=== PATIENT | male | born 1940 | race Caucasian/White ===

== ENCOUNTER 2016-08-12 11:58 | Observation (INO) ==
[2016-08-12 12:30] LABS: Basophils % 0.3 %; Eosinophils # 0.1 K/mcL (0.0-0.6); Eosinophils % 1.2 %; Hematocrit 41.1 % (37.5-50.1); Hemoglobin 12.6 g/dL (12.9-16.9); Immature Granulocytes % 0.3 % (0-4); Immature Platelets 4.8 % (1.1-6.1); Lymphocytes # 1.2 K/mcL (0.6-4.6); Lymphocytes % 18.6 %; Mean Corpuscular HGB Conc 30.7 g/dL (31.6-35.5); Mean Corpuscular Hemoglobin 24.9 pg (28.0-33.3); Mean Corpuscular Volume 81.1 fL (83.0-100.0); Mean Platelet Volume 9.4 fL (9.4-12.4); Monocytes # 0.6 K/mcL (0.0-1.3); Monocytes % 8.9 %; Neutrophils # 4.6 K/mcL (1.6-8.9); Platelet Count 184 K/mcL (140-400); Red Blood Count 5.07 M/mcL (4.19-5.50); Red Cell Distribution Width 18.6 % (11.5-14.5); Segmented Neutrophils % 70.7 %
--- NOTE | 2016-08-12 12:30 | Emergency Department Note ---
Disposition Clinical Impression: NSTEMI (non-ST elevated myocardial infarction), Chest pain, A-fib, Hyperlipidemia, Acute systolic (congestive) heart failure, CAD (coronary artery disease) Disposition: Admitted As Inpatient Condition: Fair Chest Pain HPI - General Chief Complaint: ED Chest Pain Stated Complaint: Chest Pains Time Seen by Provider: 08/12/16 12:00 Source: patient, family Limitations: no limitations Vital Signs Reviewed: Yes Nursing Notes Reviewed: Yes - History of Present Illness HPI Narrative: Temporal male with history of coronary artery disease, status post multiple PCI presented chief complaint of chest pain. Patient says for 2 weeks he has had intermittent neck pain not chest pain that he cannot describe its quality 4 out of 10 associated with gagging and diaphoresis. He does not have this sensation right now. Currently patient's on Plavix and statin. He did not take any nitroglycerin at home. He states that this is similar to his previous "chest pain". Patient denies syncope, palpitations. Patient a left heart catheter last May showed one vessel severe coronary disease in the distal RCA. He had 1 drug-eluting stent placed at that time. Patient is on Plavix. Patient is also on Coumadin for atrial fibrillation. Last echo showed LVEF of 45-50%. He was diagnosed with acute systolic heart failure. Severity scale (1-10): 0 - Related Data Home Medications Medication Instructions Recorded Confirmed Alprazolam [Xanax 0.5 MG Tablet] 0.5 mg PO TID PRN 05/28/15 08/12/16 Calcium Carbonate/Vitamin D3 0.5 tab PO BID 05/28/15 08/12/16 [Calcium 600 + Vit D Tablet] Clopidogrel [Plavix] 75 mg PO QAM 05/28/15 08/12/16 Nitroglycerin [Nitrostat] 0.4 mg SL AD PRN 05/28/15 08/12/16 Atorvastatin Calcium [Lipitor] 80 mg PO HS 08/12/16 08/12/16 Losartan [Cozaar] 25 mg PO DAILY 08/12/16 08/12/16 Metoprolol Tartrate [Lopressor] 50 mg PO BID 08/12/16 08/12/16 Omeprazole [PriLOSEC] 40 mg PO DAILY 08/12/16 08/12/16 Potassium Bicarbonate/Cit AC 25 meq PO DAILY 08/12/16 08/12/16 [Potassium 25 Meq Tablet Eff] Warfarin [Coumadin] 2.5 mg PO 6XW 08/12/16 08/12/16 Previous Rx's Medication Instructions Recorded Furosemide [Lasix] 40 mg PO BIDDIURETIC #60 tablet 06/04/15 Isosorbide MONOnitrate (24 HR) 30 mg PO DAILY #30 tab.er.24h 06/04/15 [Imdur] Promethazine [Phenergan] 25 mg PO Q6HR PRN #16 tablet 08/10/15 Allergies Allergy/AdvReac Type Severity Reaction Status Date / Time No Known Allergies Allergy Verified 05/28/15 10:37 Review of Systems: Constitutional: Denies fever, chills HEENT: Denies headache, vision changes, sore throat, rhinorrhea, reports neck pain Heart: Denies chest pain palpitations Lungs: Denies shortness of breath cough Abdomen: Denies abdominal pain nausea vomiting diarrhea Extremities: Denies swelling, pain Neuro: Denies numbness, and tingling Chest Pain PMH - Past Medical History Medical history: Reports: aortic aneurysm, atrial fibrillation, cancer, cardiomyopathy, CHF, COPD, coronary artery disease, hyperlipidemia, hypertension , myocardial infarction Surgical history: Reports: angioplasty/stent Psychiatric history: Reports: no psych history - Social History Smoking Status: Unknown if ever smoked Alcohol use: Reports: unknown Drug use: Reports: none Physical Exam General: Alert and oriented to place time and situation. Without distress HEENT: Head atraumatic, normocephalic, EOMI, PERRLA, neck nontender to palpation , Lymphadenopathy, Moist Mucous Membranes, absent temporal tenderness to palpation, absent JVD Heart: Irregularly regular rhythm Lungs: Clear to auscultation bilaterally Abdomen: Soft nontender, nondistended positive bowel sounds Extremities: Absent pedal edema, Vascular: Pedal and radialpulses 2 out of 4 - General Limitations: no limitations General appearance: alert, in no apparent distress Course Course Narrative: Ordered CBC, BMP, EKG, troponin, chest x-ray - Reevaluation(s) Reevaluation #1: Troponin was 0.04. Patient's previous troponins are 0.01. EKG shows sinus rhythm with PVC and no change from previous. Hemoglobin is stable. She will creatinine is 1.38 which is patient's baseline. Chest x-ray shows cardiomegaly with no acute process. Patient is anticoagulated with warfarin with a INR of 2.1.Patient will be needed to admit her for further evaluation. Reevaluation #2: Patient refuses to be admitted to the hospital. He was told this could certainly Diphenhist significant morbidity. He does not want to be transferred to another facility. Time: 13:38 Reevaluation #3: Patient has changed his mind and would like to be admitted. We will contact hospitalist. Time: 13:58 Vital Signs Temperature 98.5 F 08/12/16 12:01 Pulse Rate 89 08/12/16 12:01 Respiratory Rate 18 08/12/16 12:01 Blood Pressure 159/125 08/12/16 12:01 O2 Sat by Pulse Oximetry 95 08/12/16 12:01 Temperature 98.5 F 08/12/16 12:01 Pulse Rate 81 08/12/16 14:02 Respiratory Rate 18 08/12/16 14:02 Blood Pressure 118/87 08/12/16 14:02 O2 Sat by Pulse Oximetry 95 08/12/16 14:02 Oxygen Delivery Oxygen Delivery Room Air Chest Pain - MDM Narrative Medical decision making narrative: Patient's EKG shows no ST-T wave changes. Troponin is 0.04. He is anticoagulated with warfarin and has INR 2.1. We will contact hospice for admission. - Medical Records Medical records reviewed: Yes I reviewed the patient's medical records. - Lab Data Lab results reviewed: Yes I reviewed the patient's lab results. Result diagrams: 08/12/16 12:22 08/12/16 12:22 Lab Results 08/12/16 08/12/16 08/12/16 Range/Units 12:22 12:22 12:22 WBC 6.5 (4.3-11.1) K/mcL RBC 5.07 (4.19-5.50) M/mcL Hgb 12.6 L (12.9-16.9) g/dL Hct 41.1 (37.5-50.1) % MCV 81.1 L (83.0-100.0) fL MCH 24.9 L (28.0-33.3) pg MCHC 30.7 L (31.6-35.5) g/dL RDW 18.6 H (11.5-14.5) % Plt Count 184 (140-400) K/mcL MPV 9.4 (9.4-12.4) fL Immature Gran % 0.3 (0-4) % Seg Neutrophils % 70.7 % Lymphocytes % 18.6 % Monocytes % 8.9 % Eosinophils % 1.2 % Basophils % 0.3 % Neutrophils # 4.6 (1.6-8.9) K/mcL Lymphocytes # 1.2 (0.6-4.6) K/mcL Monocytes # 0.6 (0.0-1.3) K/mcL Eosinophils # 0.1 (0.0-0.6) K/mcL Basophils # 0.0 (0.0-0.2) K/mcL Immature Plt Fraction 4.8 (1.1-6.1) % PT 23.5 H (9.4-12.1) Seconds INR 2.1 APTT 37.1 H (26.0-36.0) Seconds Sodium 144 (136-145) mEq/L Potassium 4.0 (3.5-4.5) mEq/L Chloride 101 (98-109) mEq/L Carbon Dioxide 35 H (19-29) mEq/L BUN 23 (8-26) mg/dL Creatinine 1.38 H (0.72-1.25) mg/dL Est GFR ( Amer) > 60 (> 60) Est GFR (Non-Af Amer) 50 L (> 60) BUN/Creatinine Ratio 17 (6-26) Glucose 113 H (70-99) mg/dL Calculated Osmolality 302 H (280-300) Calcium 9.3 (8.6-10.8) mg/dL Troponin I (0-0.03) ng/mL 08/12/16 Range/Units 12:22 WBC (4.3-11.1) K/mcL RBC (4.19-5.50) M/mcL Hgb (12.9-16.9) g/dL Hct (37.5-50.1) % MCV (83.0-100.0) fL MCH (28.0-33.3) pg MCHC (31.6-35.5) g/dL RDW (11.5-14.5) % Plt Count (140-400) K/mcL MPV (9.4-12.4) fL Immature Gran % (0-4) % Seg Neutrophils % % Lymphocytes % % Monocytes % % Eosinophils % % Basophils % % Neutrophils # (1.6-8.9) K/mcL Lymphocytes # (0.6-4.6) K/mcL Monocytes # (0.0-1.3) K/mcL Eosinophils # (0.0-0.6) K/mcL Basophils # (0.0-0.2) K/mcL Immature Plt Fraction (1.1-6.1) % PT (9.4-12.1) Seconds INR APTT (26.0-36.0) Seconds Sodium (136-145) mEq/L Potassium (3.5-4.5) mEq/L Chloride (98-109) mEq/L Carbon Dioxide (19-29) mEq/L BUN (8-26) mg/dL Creatinine (0.72-1.25) mg/dL Est GFR ( Amer) (> 60) Est GFR (Non-Af Amer) (> 60) BUN/Creatinine Ratio (6-26) Glucose (70-99) mg/dL Calculated Osmolality (280-300) Calcium (8.6-10.8) mg/dL Troponin I 0.04 H* (0-0.03) ng/mL - Radiology Data Radiology results reviewed: Yes I reviewed the patient's radiology results. - EKG Data EKG attestation: Yes I reviewed and interpreted this EKG. EKG results narrative: Sinus rhythm rate 90, with PVC, Q waves in 23 aVF that are not changed from previous. Normal sinus rhythm with no changes from previous. Heart Score - Score History: Moderately Suspicious EKG: Normal Age: Greater than 65 Risk Factors: Equal/Greater than 3 risk factor or history of atherosclerotic disease Troponin: 1-3x normal limit HEART Score Total: 6
[2016-08-12 12:38] LABS: INR 2.1; Prothrombin Time 23.5 Seconds (9.4-12.1)
[2016-08-12 12:41] LABS: Activated Partial Thrombo Time 37.1 Seconds (26.0-36.0); BUN/Creatinine Ratio 17 (6-26); Blood Urea Nitrogen 23 mg/dL (8-26); Calcium 9.3 mg/dL (8.6-10.8); Carbon Dioxide 35 mEq/L (19-29); Chloride 101 mEq/L (98-109); Glucose 113 mg/dL (70-99); Osmolality,Calculated 302 (280-300); Sodium 144 mEq/L (136-145); eGFR For African Americans > 60 (> 60); eGFR For Non-African Americans 50 (> 60)
[2016-08-12] MEDS ORDERED: Aspirin 81 MG TAB.CHEW PO STA (12:41)
--- NOTE | 2016-08-12 13:36 | Emergency Department Note ---
START Narrative - START START: Patient is going to sign out AGAINST MEDICAL ADVICE. I spoke with him that he could potentially go home and have a heart attack and and he still has refused and is understands the consequences of him leaving. I explained that he can return to the ER at any point in the future if he so desired. Recommended close follow-up with his heart doctor.
[2016-08-12] MEDS ORDERED: Naloxone 0.4 MG/ML INJ IVP PRN (15:06)
--- NOTE | 2016-08-12 15:20 | Internal Med History&Physical ---
Date of Encounter: 08/12/16 Time of Encounter: 14:45 Assessment and Plan (1) Chest pain Current visit: Yes Status: Acute Patient with chest pain. History of prior [place] and coronary artery disease with multiple stents in the past. Will observe patient in hospital overnight. Trend troponins. Telemetry. Consult cardiology for further recommendations. Qualifiers: Chest pain type: precordial pain Qualified Code(s): R07.2 - Precordial pain (2) Acute systolic (congestive) heart failure Current visit: Yes Status: Acute Patient having dyspnea on exertion and worse pedal edema. We will treat with IV Lasix. Chest x-ray does not show any signs of pulmonary edema. This could also be contributing to rise in troponin. Patient had a 2-D echocardiogram 1 year back which showed EF of 45 to 50%. We will repeat 2-D echo. (3) A-fib Current visit: Yes Status: Chronic Rate controlled. On Coumadin. Monitor with telemetry. Continue beta glen. Qualifiers: Atrial fibrillation type: paroxysmal Qualified Code(s): I48.0 - Paroxysmal atrial fibrillation (4) Hyperlipidemia Current visit: Yes Status: Chronic Continue statin. Check lipid profile. Qualifiers: Hyperlipidemia type: mixed hyperlipidemia Qualified Code(s): E78.2 - Mixed hyperlipidemia (5) Hypertension Current visit: Yes Status: Chronic Blood pressure is well controlled. Will monitor and continue home medications. Qualifiers: Hypertension type: essential hypertension Qualified Code(s): I10 - Essential (primary) hypertension Internal Medicine - H&P: HPI Chief complaint: Chest discomfort Admitted From: Emergency Dept Plans for Post Hospital Care: Home History of present illness: Mr. More is a 76 year old male patient with a history of coronary artery disease,, hypertension and hyperlipidemia atrial fibrillation on anticoagulation with Coumadin who presented to the ER with complaints of chest discomfort that has been going on for 2 weeks. She did not have the chest pain today but he describes a pain going up into his neck. Over the past 2 weeks though he has been having some chest discomfort across his chest. This was radiating up his neck and jaw. He has had similar kind of pain during his previous episodes of [place]. As such was concerned about this and came to the ER. He has been having worsening pedal edema and worsening dyspnea on exertion. He does take diuretic every day. Patient has had multiple stents in the past. his last one was in May of last year and he had a drug-eluting stent placed to the proximal RCA. He had been recommended CABG but he had refused at that time. He was also referred to a tertiary care center for Rotablator therapy. However the patient says that when he visited the facility, after multiple tests, he was told that he did not need any further treatment at that time. He is on Plavix and Coumadin in addition to metoprolol and Imdur. Past Med Surg Social Fam HX - Past Medical History Attestation: Yes The following information was validated with the patient. Source: patient, old records reviewed Medical history: aortic aneurysm, atrial fibrillation, cancer, cardiomyopathy, CHF, COPD, coronary artery disease, hyperlipidemia, hypertension, myocardial infarction Psychiatric history: no psych history - Past Surgical History Surgical History: angioplasty/stent - Social History Smoking Status: Unknown if ever smoked Smokeless Tobacco Status: No Alcohol use: unknown Drug use: none - Family History Father Family Member Ethnicity: Non- Living Status: Hx Family Cardiac Disorders: Yes (Unknown) Internal Medicine - H&P: Meds Alprazolam [Xanax 0.5 MG Tablet] 0.5 mg PO TID PRN 05/28/15 [History] Calcium Carbonate/Vitamin D3 [Calcium 600 + Vit D Tablet] 0.5 tab PO BID [History] Clopidogrel [Plavix] 75 mg PO QAM 05/28/15 [History] Nitroglycerin [Nitrostat] 0.4 mg SL AD PRN 05/28/15 [History] Furosemide [Lasix] 40 mg PO BIDDIURETIC #60 tablet 06/04/15 [Rx] Isosorbide MONOnitrate (24 HR) [Imdur] 30 mg PO DAILY #30 tab.er.24h 06/04/15 [ Rx] Promethazine [Phenergan] 25 mg PO Q6HR PRN #16 tablet 08/10/15 [Rx] Atorvastatin Calcium [Lipitor] 80 mg PO HS 08/12/16 [History] Losartan [Cozaar] 25 mg PO DAILY 08/12/16 [History] Metoprolol Tartrate [Lopressor] 50 mg PO BID 08/12/16 [History] Omeprazole [PriLOSEC] 40 mg PO DAILY 08/12/16 [History] Potassium Bicarbonate/Cit AC [Potassium 25 Meq Tablet Eff] 25 meq PO DAILY 08/12 [History] Warfarin [Coumadin] 2.5 mg PO 6XW 08/12/16 [History] Allergies No Known Allergies Allergy (Verified 05/28/15 10:37) All Systems PM: A 10-system review of systems was performed and is negative for pertinent findings except as documented above in the HPI. - Constitutional Constitutional: no chills, no fever(s), no night sweats - EENT Eyes: no change in vision, no discharge, no pain, no photophobia Ears: no ear discharge, no ear pain, no tinnitus Nose, mouth and throat: no dysphagia, no nasal discharge, no neck pain, no sore throat - Cardiovascular Cardiovascular ROS IM: chest pain, dyspnea on exertion, no diaphoresis, no dyspnea, no lightheadedness, no palpitations, no syncope - Respiratory Respiratory: no cough, no dyspnea, no wheezing, no excessive phlegm production - Gastrointestinal Gastrointestinal: no abdominal pain, no diarrhea, no hematemesis, no hematochezia, no melena, no nausea, no vomiting - Musculoskeletal Musculoskeletal ROS IM: no numbness, no tingling - Integumentary Integumentary IM: no rash, no unusual bruising - Neurological Neurological ROS: no confusion, no convulsions, no focal weakness, no numbness, no tingling, no tremor(s) - Hematologic/Lymphatic Hematologic/Lymphatic: no easy bruising - Constitutional Vitals: Temp Pulse Resp BP Pulse Ox 97.8 F 83 15 115/70 94 08/12/16 15:04 08/12/16 15:04 08/12/16 15:04 08/12/16 15:05 08/12/16 15:04 General appearance: Present: cooperative, mild distress, A&O X 3, answers questions appropriately - Eye Eye exam: Present: EOMI, PERRL, conjuntiva pink, sclera anicteric - Neck Neck exam general surgery: Present: supple, trachea midline. Absent: lymphadenopathy - Respiratory Respiratory exam: Present: CTAB. Absent: accessory muscle use, rales, rhonchi, wheezes - Cardiovascular Cardiovascular exam: Present: irregular rhythm, +S1, +S2, tachycardia. Absent: diastolic murmur, gallop, rubs, systolic murmur - GI/Abdominal GI/Abdominal exam: Present: normal bowel sounds, soft, no peritoneal signs. Absent: distended, tenderness - Extremities Exam Extremities exam: Present: warm, radial pulses palpable and symetrical. Absent : calf tenderness, cyanotic, pedal edema - Neurological Exam Neurological exam: Present: CN II-XII intact, oriented X3, no focal deficits. Absent: facial droop, speech deficit - Skin Skin exam: Present: dry, intact Internal Med - H&P Results - Labs CBC & Chem 7: 08/12/16 12:22 08/12/16 12:22 - EKG Data EKG comments: 08/12/16 15:22 Rate controlled A. fib - Impressions Impressions Chest X-Ray 08/12/16 12:02 IMPRESSION: Cardiomegaly with no acute process demonstrated D/ / Allan Luque MD / Allan Luque MD Interpreting Provider: Allan Luque MD - Attending Attestation This document has been at least partially created by [employer] recognition technology by Dr. Stanford. Errors in grammar, wording or other phrases may exist. If errors are found after the documentation is signed, they will be addressed individually in the addendum section of this document when appropriate.
[2016-08-12] MEDS ORDERED: Nitroglycerin 0.4 MG TAB.SUBL SL PRN (15:27)
[2016-08-12] MEDS ORDERED: ALPRAZolam 0.5 MG TABLET PO PRN (15:27)
[2016-08-12] MEDS: Furosemide 40 MG/4 ML VIAL IVP SCH (17:02)
[2016-08-12] MEDS ORDERED: *HR* Warfarin 2.5 MG TABLET PO SCH (18:00)
[2016-08-13 05:15] LABS: Basophils % 0.2 %; Eosinophils # 0.1 K/mcL (0.0-0.6); Eosinophils % 2.3 %; Hematocrit 36.7 % (37.5-50.1); Hemoglobin 11.4 g/dL (12.9-16.9); Immature Granulocytes % 0.4 % (0-4); Lymphocytes # 1.7 K/mcL (0.6-4.6); Mean Corpuscular HGB Conc 31.1 g/dL (31.6-35.5); Mean Corpuscular Volume 80.5 fL (83.0-100.0); Mean Platelet Volume 10.6 fL (9.4-12.4); Monocytes # 0.5 K/mcL (0.0-1.3); Monocytes % 10.7 %; Neutrophils # 2.5 K/mcL (1.6-8.9); Platelet Count 151 K/mcL (140-400); Red Blood Count 4.56 M/mcL (4.19-5.50); Red Cell Distribution Width 18.6 % (11.5-14.5); Segmented Neutrophils % 51.4 %
[2016-08-13 05:19] LABS: INR 2.3; Prothrombin Time 25.9 Seconds (9.4-12.1)
[2016-08-13 05:32] LABS: Calcium 9.1 mg/dL (8.6-10.8); Chol/HDL Ratio 2.6 (0-4.9)
[2016-08-13] MEDS: Furosemide 40 MG/4 ML VIAL IVP SCH (08:54)
[2016-08-13] MEDS ORDERED: Potassium Effervescent 25 MEQ TABLET.EFF PO SCH (09:00)
[2016-08-13] MEDS ORDERED: Isosorbide MONOnitrate (24 HR) 30 MG TAB.ER.24H PO SCH (09:00)
--- NOTE | 2016-08-13 09:31 | Cardiology Consult Note ---
Date of Encounter: 08/13/16 Time of Encounter: 08:30 Assessment and Plan (1) CAD (coronary artery disease) Current Visit: Yes Status: Acute Presents with chest/neck discomfort--similar to angina symptoms. Tropoin 0.04, 0.03, 0.03. No acute ischemic ECG changes noted--findings similar to prior ECG. Non-exercise nuclear stress test at [facility] in on 12/16/15--negative for reversible ishchemia. [facility] 05/2015--PTCA/GISELLE to pRCA with moderate residual stenosis, he was recommended for bypass surgery but has refused. Pain free upon exam, recommend medical management. Increase betablocker and nitrates. Consider addition of ranexa in future. Continue asa, statin, and plavix. Echocardiogram pending. Qualifiers: Coronary Disease-Associated Artery/Lesion type: [place] artery [place] vs. transplanted heart: wainwright heart Associated angina: with stable angina Qualified Code(s): I25.118 - Atherosclerotic heart disease of [place]ain[place] coronary artery with other forms of angina pectoris (2) NSVT (nonsustained ventricular tachycardia) Current Visit: Yes Status: Acute Frequent episodes of NSVT noted, longest 13 beats. Will increase betablocker to 100 mg BID. Check magnesium. (3) Systolic dysfunction Current Visit: Yes Status: Chronic Hx of mild systolic dysfunction, EF 45-50% per TTE 05/2015. Mild volume overload upon exam. No acute findings on CXR. Will stop IV lasix and change to po home dose. SCr elevation noted today. Continue betablocker and ARB. (4) A-fib Current Visit: Yes Status: Chronic Hx of afib on coumadin therapy (ACMS monitors as outpatient). Rate controlled on oral betablocker. INR therapeutic. Qualifiers: Atrial fibrillation type: persistent Qualified Code(s): I48.1 - Persistent atrial fibrillation Discussion w patient/family: The assessment and plan as outlined above was discussed with the patient and/or family members who expressed understanding and agreement. All questions were answered. Thank you for involving us in the care of your patient. Please call with any questions. The patient will be discussed and reviewed with Dr. Escobar; changes to be made accordingly. History of Present Illness Consult date: 08/13/16 Requesting physician: Meaghan Stanford Consult reason: Chest pain Chief complaint: Chest pain History of present illness: Mr. More is a 76 year old male with PMH significant for CAD s/p PCI, HTN, HLD , Afib (coumadin), and NATALEE who presented to the ED with worsening neck tightness and chest discomfort. Reports symptoms have been intermittent over the past month--typically occurring at rest but worsened yesterday morning shortly after waking up. Associated symptoms include dizziness and BLE edema. Upon arrival to ED, BP was elevated, and initial troponin was 0.04. No acute ECG changes noted. Recent CV testing includes: Non-exercise nuclear stress test 12/16/15 ([facility]): negative for reversible ischemia, large perfusion defect in the inferolateral-inferior wall from base to apex; gated EF=42% TTE 05/28/15: EF 45-50%, hypokinesis of the basal-mid inferior lateral wall [facility] 06/01/16: severe 1v CAD, mild-moderate LV dysfunction, EF 40%, successful PTCA/GISELLE in the pRCA with residual 40-50% stenosis. Otherwise, 30% LMCA, 30% mLAD, 20% 1OM, and 60-70% dRCA Past Med Surg Social Fam HX - Past Medical History Attestation: Yes The following information was validated with the patient. Source: patient, old records reviewed Medical history: aortic aneurysm, atrial fibrillation, cancer, CHF (mild systolic dysfunction), COPD, coronary artery disease, hyperlipidemia, hypertension, myocardial infarction Psychiatric history: anxiety - Past Surgical History Surgical History: angioplasty/stent - Social History Smoking Status: Former smoker Smokeless Tobacco Status: No Alcohol use: none Drug use: none - Family History Father Name: Fortunato More Family Member Ethnicity: Non- Living Status: Age at : 65 Cause of : heart attack Hx Family Cardiac Disorders: Yes Medications and Allergies Alprazolam [Xanax 0.5 MG Tablet] 0.5 mg PO TID PRN 05/28/15 [History] Calcium Carbonate/Vitamin D3 [Calcium 600 + Vit D Tablet] 0.5 tab PO BID [History] Clopidogrel [Plavix] 75 mg PO QAM 05/28/15 [History] Nitroglycerin [Nitrostat] 0.4 mg SL AD PRN 05/28/15 [History] Furosemide [Lasix] 40 mg PO BIDDIURETIC #60 tablet 06/04/15 [Rx] Isosorbide MONOnitrate (24 HR) [Imdur] 30 mg PO DAILY #30 tab.er.24h 06/04/15 [ Rx] Promethazine [Phenergan] 25 mg PO Q6HR PRN #16 tablet 08/10/15 [Rx] Atorvastatin Calcium [Lipitor] 80 mg PO HS 08/12/16 [History] Losartan [Cozaar] 25 mg PO DAILY 08/12/16 [History] Metoprolol Tartrate [Lopressor] 50 mg PO BID 08/12/16 [History] Omeprazole [PriLOSEC] 40 mg PO DAILY 08/12/16 [History] Potassium Bicarbonate/Cit AC [Potassium 25 Meq Tablet Eff] 25 meq PO DAILY 08/12 [History] Warfarin [Coumadin] 2.5 mg PO 6XW 08/12/16 [History] Allergies No Known Allergies Allergy (Verified 05/28/15 10:37) All Systems Review: A 10-system review of systems was performed and is negative for pertinent findings except as documented above in the HPI. - Cardiovascular Cardiovascular: as per HPI Physical Examination Vital Signs, Last 4 Hours Temp Pulse Resp BP Pulse Ox 08/13/16 08:20 98.1 F 100 16 154/96 94 General: Conversant, No Apparent Distress HEENT: Atraumatic, Normocephaly, Mucus Membranes Moist Cardiac: Reg Rate and Rhythm, Normal S1 and S2 Lungs: Other (Mildy diminished bibasilar) Neuro: Alert and responsive Abdomen: Soft Skin: No rashes noted on visualized skin Musculoskeletal: No Chest Wall Tenderness Extremities: Other (mild, non-pitting, pre-tibial edema) Results 08/13/16 04:09 08/13/16 04:09 Lab Results 08/12/16 08/12/16 08/13/16 15:20 20:49 04:09 WBC Hgb Hct Plt Count INR Sodium Potassium Chloride Carbon Dioxide BUN Creatinine Glucose Calcium Troponin I 0.03 0.03 B-Natriuretic Peptide 735 H 08/13/16 08/13/16 08/13/16 04:09 04:09 04:09 WBC 4.8 Hgb 11.4 L Hct 36.7 L Plt Count 151 INR 2.3 Sodium 144 Potassium 4.0 Chloride 102 Carbon Dioxide 33 H BUN 24 Creatinine 1.45 H Glucose 99 Calcium 9.1 Troponin I B-Natriuretic Peptide - Imaging and Cardiology Stress Test: report reviewed Echo: report reviewed Cardiac cath: report reviewed Other Results: 12 hour tele: avg HR=86 afib. Freqent PVCs, 1 episode NSVT 13 beats - EKG Interpretation EKG results cardiology: personally reviewed Consult Discharge Plan - Plan Referrals: Mendel Hendricks MD [Primary Care Provider] -
[2016-08-13 11:07] VITALS: BP 121/71
--- NOTE | 2016-08-13 11:30 | ECHO - Doppler Report ---
Echocardiogram Name: Rajinder More Date of Study: 08/13/2016 Date: 1940 Ht: 68.0 in Medical Record#: [id number] Age: 76 Wt: 213.0 lb Gender: Male BSA: 2.1 Order #: [id number] Location: [facility] Room #: 3B52 Reading Physician: Brady Foreman DO, KEILY EMERSON Personnel Specialist: Eddie Tellez RDCS Ordering Physician: Meaghan Stanford MD Primary Physician: Mendel Hendricks MD Indications: Chest pain, Congestive heart failure Impressions: LVEF 45%. Mildly dilated left ventricle. Mild segmental left ventricular systolic dysfunction. Indeterminate diastolic function. Normal right ventricular structure and function. Mild mitral regurgitation. Mild pulmonary hypertension. Left Ventricular Wall Motion: Rest Echo Findings The mid inferior, basal inferior, mid inferior lateral and basal inferior lateral james were hypokinetic. All other wall segments showed normal motion. Findings: Study Quality * Technically adequate exam. ECG Findings * Atrial fibrillation. Left Ventricle * LVEF 45%. * Mildly dilated left ventricle. * Mild segmental left ventricular systolic dysfunction. * Indeterminate diastolic function. Right Ventricle * Normal right ventricular structure and function. Left Atrium * Moderately dilated left atrium. Right Atrium * Mildly dilated right atrium. Interatrial Septum * No evidence of PFO by color Doppler. Aortic Valve * Trileaflet aortic valve. * Mildly sclerotic aortic valve leaflets. * Trace aortic regurgitation. * No aortic stenosis. Mitral Valve * Mild mitral annular calcification * Mild mitral regurgitation. * No mitral stenosis. Tricuspid Valve * Normal tricuspid valve structure and function. * Trace tricuspid regurgitation. * Mild pulmonary hypertension. Pulmonic Valve * Pulmonic valve is not well visualized. * No pulmonic regurgitation. Aorta * Normally sized aortic root. Pericardium * The pericardium appears normal. IVC * Normal IVC dimensions and inspiratory collapse. Pulmonary Artery * Normal visualized portions of the main pulmonary artery. History Hypertension Hypercholesteremia Family History of CAD History of CAD/PTCA Myocardial Infarction Valvular Disease a Previous Echo was performed. Measurements: BP: 153/ 72 2D Normal Values RVIDd: 3.28 cm <2.7 cm IVSd: .96 cm 0.6 - 1.0 cm LVIDd: 5.70 cm 3.7 - 5.6 cm LVPWd: 1.00 cm 0.6 - 1.1 cm LVIDs: 4.81 cm 1.5 - 3.6 cm AO: 3.60 cm < 4.0 cm LA: 3.40 cm 2.0 - 4.0cm %FS: 15.60 cm >25 % LA volume: 73 Mitral Valve Peak E:.99 m/sec Aortic Valve AI pressure Half-time: 310.00 msec Tricuspid Valve TV Regurg Peak Grad: 40.00mmHg TV Regurg Peak Michael: 3.18m/sec Updated by Brady Foreman DO, FACRenee, KEILY, APRIL on 08/13/2016 11:21:36 AM electronically signed on 08/13/2016 11:26:06 AM with status of Final Wall Motion [place]: 1=Normal, 2=Hypokinesis, 3=Akinesis, 4=Dyskinesis, 5=Aneurysmal, 6=Hyperkinetic, X=Not Visualized (Blank)=Missing
[2016-08-13] MEDS ORDERED: Isosorbide MONOnitrate (24 HR) 30 MG TAB.ER.24H PO ONE (12:00)
--- NOTE | 2016-08-13 13:20 | Discharge Summary ---
Date of Encounter: 08/13/16 Time of Encounter: 10:00 - Discharge Diagnosis (1) Chest pain Priority: Primary Status: Acute Comments: Patient denies chest pain at this time. He was assessed by cardiology prior to discharge today. It was recommended that he increase his beta glen and his nitrate. Also consider addition of Ranexa in the future. Continue aspirin and statin and Plavix. Patient will also be ordered a 48 hour Holter monitor. Echocardiogram showed LVEF 45%. Mild segmental left ventricular systolic dysfunction, indeterminate diastolic function, mild MR, mild pulmonary hypertension Initial troponin was 0.04 down to 0.02. EKG showed no acute ischemic changes. Qualifiers: Chest pain type: precordial pain Qualified Code(s): R07.2 - Precordial pain (2) A-fib Priority: Secondary Status: Chronic Comments: Rate controlled. He is also on Coumadin. He will continue his beta glen at home. Qualifiers: Atrial fibrillation type: persistent Qualified Code(s): I48.1 - Persistent atrial fibrillation (3) Hyperlipidemia Priority: Secondary Status: Chronic Comments: Chronic. Continue statin at home. Lipid panel within normal limits. Qualifiers: Hyperlipidemia type: mixed hyperlipidemia Qualified Code(s): E78.2 - Mixed hyperlipidemia (4) Hypertension Priority: Secondary Status: Chronic Comments: Blood pressure has been well controlled during admission. Continue home medications. Qualifiers: Hypertension type: essential hypertension Qualified Code(s): I10 - Essential (primary) hypertension (5) Acute systolic (congestive) heart failure Priority: Secondary Status: Acute Comments: Patient reports dyspnea on exertion, chest pain for 2 weeks. Patient received 40 mg of Lasix IV daily. Echocardiogram showed LVEF of 45%, mild segmental left ventricular systolic dysfunction, indeterminant diastolic dysfunction. Mild pulmonary hypertension, mild MR, normal right ventricular structure and function. Chest x-ray negative for signs of pulmonary edema or acute cardiopulmonary process. Patient will continue home dose of Lasix at home as well and follow up with cardiopulmonary. - Discharge Medications Prescriptions: Isosorbide MONOnitrate (24 HR) [Imdur] 60 mg PO DAILY #30 tab.er.24h Metoprolol [Lopressor] 100 mg PO BID #60 tablet Home Medications: Alprazolam [Xanax 0.5 MG Tablet] 0.5 mg PO TID PRN 05/28/15 [History] Calcium Carbonate/Vitamin D3 [Calcium 600 + Vit D Tablet] 0.5 tab PO BID [History] Clopidogrel [Plavix] 75 mg PO QAM 05/28/15 [History] Nitroglycerin [Nitrostat] 0.4 mg SL AD PRN 05/28/15 [History] Furosemide [Lasix] 40 mg PO BIDDIURETIC #60 tablet 06/04/15 [Rx] Isosorbide MONOnitrate (24 HR) [Imdur] 30 mg PO DAILY #30 tab.er.24h 06/04/15 [ Rx] Promethazine [Phenergan] 25 mg PO Q6HR PRN #16 tablet 08/10/15 [Rx] Atorvastatin Calcium [Lipitor] 80 mg PO HS 08/12/16 [History] Losartan [Cozaar] 25 mg PO DAILY 08/12/16 [History] Metoprolol Tartrate [Lopressor] 50 mg PO BID 08/12/16 [History] Omeprazole [PriLOSEC] 40 mg PO DAILY 08/12/16 [History] Potassium Bicarbonate/Cit AC [Potassium 25 Meq Tablet Eff] 25 meq PO DAILY 08/12 [History] Warfarin [Coumadin] 2.5 mg PO 6XW 08/12/16 [History] Isosorbide MONOnitrate (24 HR) [Imdur] 60 mg PO DAILY #30 tab.er.24h 08/13/16 [ Rx] Metoprolol [Lopressor] 100 mg PO BID #60 tablet 08/13/16 [Rx] Allergies/Adverse Reactions: Allergies No Known Allergies Allergy (Verified 05/28/15 10:37) Procedures/tests Complete & Pending: Procedures Performed prior 72 hours Category Date Time Status ECG 48 holter monitor setup [ECG] Routine Y 08/13/16 11:30 Ordered EV echocardiogram Routine Y 08/13/16 15:27 Completed Date of admission: 08/12/16 14:15 Primary care physician: Mendel Hendricks MD Consults: 08/12/16 15:26 Consult to Cardiology [CONS] Routine Comment: Consulting Provider: Cardiology [facility] Reason for Consult: Chest pain, mild troponin elevation, CHF, prior stents Time Notified: 15:27 Call Completed: Yes Discharging clinician: Alyssa Combs Anticipated date of discharge: 08/13/16 - Patient Status Disposition: Home, Self-Care Condition: Good Functional capacity at discharge: independent ambulation Overall status at discharge: patient is back to baseline - Discharge Instructions Follow Up With: Mendel Hendricks MD [Primary Care Provider] - Forms: ED Satisfaction Letter Additional Instructions: Please follow up with cardiology as scheduled next . Take your medications as written. Continue your other normal home medications Return to the ED for any other problems or concerns, or if your pain returns or if you have any concerning change in your condition. Hospital course: Mr. More is a 76 year old male with a history of congestive heart failure, A. fib, chest pain, AL, coronary artery disease,, hyperlipidemia, hypertension. He presented to the emergency department on August 12 with complaint of two-week history of chest pain. He said that it started radiating into his neck yesterday causing him concern to bring him to the ER. He said that his chest pain was diffuse all over left to right, burning, and the only radiation was into the neck yesterday. He describes the pain as intermittent, and very short lasting perhaps 1-2 seconds. At its worst it was 10 out of 10. He said that he did become diaphoretic, however, this could be from the hormone he is taking for his prostate. He said he has become short of breath and noticed some increasing peripheral edema. Patient continued taking his Lasix at home. Patient does have a GISELLE in his proximal RCA. He has declined to have CABG. Trended troponins and they were negative. Echocardiogram was done today, LVEF of 45%, mildly dilated left ventricle, mild segmental left ventricular systolic dysfunction, indeterminate diastolic dysfunction, normal right ventricular structure and function, mild mitral regurgitation, and mild pulmonary hypertension. Chest x-ray was negative. He is pain-free this morning. He was seen by cardiology this morning, as well. He will have an outpatient Holter monitor to be placed here before he leaves today. He will continue his Plavix and Coumadin, the Imdur and metoprolol will be increased. He will be sent home with prescriptions for these. Patient is alert and awake, creatinine is elevated at 1.45, however this is his baseline. Lipid panel is within normal limits. BNP was initially 735. He will continue his Lasix at home.patient states he has an appointment with cardiology next . She is stable and appropriate for discharge. - Time Spent with Patient Total time spent providing and/or coordinating discharge services: Less than 30 minutes - Constitutional Vitals: Temp Pulse Resp BP Pulse Ox 97.6 F 85 16 121/71 98 08/13/16 11:03 08/13/16 11:03 08/13/16 11:03 08/13/16 11:03 08/13/16 11:03 General appearance: Present: cooperative, mild distress, A&O X 3, pleasant, no acute distress, answers questions appropriately - Head Head exam: Present: normal inspection - Eye Eye exam: Present: normal appearance, conjuntiva pink - ENT ENT exam: Present: mucous membranes moist, normal exam, normal external ear exam - Neck Neck exam general surgery: Present: normal inspection. Absent: lymphadenopathy , tenderness - Respiratory Respiratory exam: Present: CTAB. Absent: respiratory distress, rhonchi, stridor , wheezes - Cardiovascular Cardiovascular exam: Present: RRR, +S1, +S2. Absent: diastolic murmur, distant heart sounds, systolic murmur - GI/Abdominal GI/Abdominal exam: Present: normal bowel sounds, soft. Absent: distended, firm , hepatomegaly, tenderness - Neurological Exam Neurological exam: Present: alert, oriented X3, no focal deficits. Absent: facial droop, speech deficit
[2016-08-13 15:48] LABS: Magnesium 1.9 mg/dL (1.6-2.6)
[2016-08-13] MEDS ORDERED: Furosemide 40 MG TABLET PO SCH (17:00)
[2016-08-14] MEDS ORDERED: Isosorbide MONOnitrate (24 HR) 30 MG TAB.ER.24H PO SCH (09:00)
--- NOTE | 2016-08-14 11:17 | Electrocardiograph Report ---
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
--- NOTE | 2016-08-16 09:01 | Electrocardiograph Report ---
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
== END 2016-08-13 15:41 | disposition home or self-care (01) ==
LOC: 3BNU 11:58 → EMEROO 11:58 → 3BNU 14:45
PROVIDERS: ADMIT Internal Medicine; ATTEND Registered Nurse

== ENCOUNTER 2017-01-18 10:24 | Inpatient (IN) ==
[2017-01-18] MEDS ORDERED: *HR* Amiodarone Premix 360 MG/200 ML BAG IVC ONE (10:43)
[2017-01-18] MEDS ORDERED: *HR* Amiodarone 150 MG/3 ML VIAL IVPB ONE (10:43)
[2017-01-18] MEDS ORDERED: 0.9 % Sodium Chloride 500 ML IVC ONE (10:56)
[2017-01-18] MEDS ORDERED: Amiodarone Premix 150 MG/100 ML BAG IVPB ONE (10:56)
[2017-01-18 11:18] LABS: Basophils % 0.3 %; Eosinophils # 0.1 K/mcL (0.0-0.6); Eosinophils % 1.4 %; Hematocrit 36.2 % (37.5-50.1); Hemoglobin 11.6 g/dL (12.9-16.9); Immature Granulocytes % 0.5 % (0-4); Lymphocytes # 1.5 K/mcL (0.6-4.6); Lymphocytes % 19.2 %; Mean Corpuscular Hemoglobin 26.1 pg (28.0-33.3); Mean Corpuscular Volume 81.5 fL (83.0-100.0); Mean Platelet Volume 10.6 fL (9.4-12.4); Monocytes # 0.6 K/mcL (0.0-1.3); Neutrophils # 5.6 K/mcL (1.6-8.9); Platelet Count 187 K/mcL (140-400); Red Blood Count 4.44 M/mcL (4.19-5.50); Red Cell Distribution Width 16.5 % (11.5-14.5); Segmented Neutrophils % 70.6 %
[2017-01-18 11:23] LABS: INR 1.9; Prothrombin Time 20.5 Seconds (9.4-12.1)
[2017-01-18 11:26] LABS: Activated Partial Thrombo Time 34.2 Seconds (26.0-36.0)
[2017-01-18 11:30] LABS: BUN/Creatinine Ratio 13 (6-26); Blood Urea Nitrogen 14 mg/dL (8-26); Calcium 9.1 mg/dL (8.6-10.8); Carbon Dioxide 31 mEq/L (19-29); Chloride 105 mEq/L (98-109); Glucose 122 mg/dL (70-99); Osmolality,Calculated 298 (280-300); Potassium 3.1 mEq/L (3.5-4.5); Sodium 143 mEq/L (136-145); eGFR For African Americans > 60 (> 60); eGFR For Non-African Americans > 60 (> 60)
[2017-01-18 11:31] LABS: Bilirubin,Urine Negative (Negative); Blood,Urine Negative (Negative); Clarity,Urine Clear (Clear); Color,Urine Yellow (Yellow); Glucose,Urine (UA) Normal (Normal); Ketones,Urine Negative (Negative); Leukocyte Esterase,Urine Trace (Negative); Nitrite,Urine Negative (Negative); Protein,Urine 30 mg/dL (Neg-Trace); Specific Gravity,Urine 1.014 (1.010-1.025); Urobilinogen,Urine Normal (Normal)
[2017-01-18 11:33] LABS: Bacteria,Urine None Seen per hpf (None-Few); Hyaline Casts,Urine None Seen per lpf (None-Few); RBC,Urine 0-3 per hpf (0-3); Squamous Epithelial Cell,Urine Moderate per lpf (None-Few)
[2017-01-18] MEDS ORDERED: Aspirin 81 MG TAB.CHEW PO ONE (12:23)
--- NOTE | 2017-01-18 13:48 | Cardiology Consult Note ---
Date of Encounter: 01/18/17 Time of Encounter: 14:47 Assessment and Plan (1) Chest pain Current Visit: No Status: Acute Typical chest pain symptoms. Known CAD as described. EKG shows atrial fibrillation and 10 beats NSVT. No acute ST changed identified. Mild troponin elevation at 0.14 in the setting of NSVT vs NSTEMI. Continue to trend troponin. Check TTE. Patient states that he would consider going to [facility] if LHC is indicated. Increase imdur to 120 mg BID. Qualifiers: Chest pain type: precordial pain Qualified Code(s): R07.2 - Precordial pain (2) NSVT (nonsustained ventricular tachycardia) Current Visit: No Status: Acute Known history of VT seen 07/2016 during in-patient stay and on Holter. Recommended to go to [facility] at that time for further management and he declined. Agree with IV amiodarone. Increase beta-glen as tolerated. K3.1- being replaced y primary team. Keep potassium around 4.0 and magnesium around 2.0. Magnesium level ordered. (3) CAD (coronary artery disease) Current Visit: No Status: Acute H/o CAD s/p multiple PCI. Most recently stent placed 05/2015. Previous cardiac testing; Non-exercise nuclear stress test 12/16/15 ([facility]): negative for reversible ischemia , large perfusion defect in the inferolateral-inferior wall from base to apex; gated EF=42% TTE 05/28/15: EF 45-50%, hypokinesis of the basal-mid inferior lateral wall LHC 06/01/16: severe 1v CAD, mild-moderate LV dysfunction, EF 40%, successful PTCA/GISELLE in the pRCA with residual 40-50% stenosis. Otherwise, 30% LMCA, 30% mLAD, 20% 1OM, and 60-70% dRCA Continue asa, statin, imdur, and bb. Qualifiers: Coronary Disease-Associated Artery/Lesion type: [place] artery [place] vs. transplanted heart: [place] heart Associated angina: with stable angina Qualified Code(s): I25.118 - Atherosclerotic heart disease of [place] coronary artery with other forms of angina pectoris (4) A-fib Current Visit: No Status: Chronic Currently rate controlled afib on coumadin therapy. INR 1.9 today. Continue home dose. Qualifiers: Atrial fibrillation type: persistent Qualified Code(s): I48.1 - Persistent atrial fibrillation (5) Ischemic cardiomyopathy Current Visit: Yes Status: Acute TTE 07/2016 showed EF 45%.Mildly dilated left ventricle. Mild segmental left ventricular systolic dysfunction. Indeterminate diastolic function. Normal right ventricular structure and function. Mild mitral regurgitation. Mild pulmonary hypertension. CXR shows no acute process. Denies weight gain or swelling. Currently euvolemic. On beta-glen and arb. Discussion w patient/family: The assessment and plan as outlined above was discussed with the patient and/or family members who expressed understanding and agreement. All questions were answered. Thank you for involving us in the care of your patient. Please call with any questions. History of Present Illness Consult date: 01/18/17 Consult reason: NSVT Chief complaint: dyspnea and chest pain History of present illness: Mr. More is a 76 year old male with a history of known obstructive CAD, previous PCI, ischemic cardiomyopathy, HTN, HLD, Afib (coumadin), and NATALEE who presented to the ED with worsening dyspnea on exertion and chest discomfort. C/ o SOB and cough for three weeks. He was started on treatment for bronchitis by PCP one week ago. Over the past three evenings he noticed increasing SOB with midsternal chest pressure with minimal activity. His chest pressure was relieved with SL NTG. He was taking up to 3 SL NTG throughout the evening. He called the cardiology office and he said he was told to go to the ER. He was recently recommended to follow at [facility] for increasing VT and chest pain. He was seen at [facility] in July of this year for chest pain and NSVT. His last [facility] films from 05/2015 reviewed at that time. He has known ISR in his RCA that was not fully amendable to PCI and was recommended for re-evaluation at [facility]. He was previously seen at [facility] in November 2015. A stress test was completed at that time and found to be negative for ischemia and no further testing recommended. Recent CV testing includes: Non-exercise nuclear stress test 12/16/15 ([facility]): negative for reversible ischemia, large perfusion defect in the inferolateral-inferior wall from base to apex; gated EF=42% TTE 05/28/15: EF 45-50%, hypokinesis of the basal-mid inferior lateral wall [facility] 06/01/16: severe 1v CAD, mild-moderate LV dysfunction, EF 40%, successful PTCA/GISELLE in the pRCA with residual 40-50% stenosis. Otherwise, 30% LMCA, 30% mLAD, 20% 1OM, and 60-70% dRCA Past Med Surg Social Fam HX - Past Medical History Medical history: aortic aneurysm, atrial fibrillation, cancer, CHF, COPD, coronary artery disease, hyperlipidemia, hypertension, myocardial infarction Psychiatric history: anxiety - Past Surgical History Surgical History: angioplasty/stent - Social History Smoking Status: Former smoker Smokeless Tobacco Status: No Alcohol use: none Drug use: none - Family History Father Adopted: No Family Member Ethnicity: Non- Living Status: Hx Family Cardiac Disorders: Yes Hx Family Respiratory Disorders: No Hx Family Cancer: No Medications and Allergies ALPRAZolam [Xanax 0.5 MG Tablet] 0.5 mg PO TID PRN 05/28/15 [History] Calcium Carbonate/Vitamin D3 [Calcium 600 + Vit D Tablet] 0.5 tab PO BID [History] Clopidogrel [Plavix] 75 mg PO QAM 05/28/15 [History] Nitroglycerin [Nitrostat] 0.4 mg SL AD PRN 05/28/15 [History] Furosemide [Lasix] 40 mg PO BIDDIURETIC #60 tablet 06/04/15 [Rx] Promethazine [Phenergan] 25 mg PO Q6HR PRN #16 tablet 08/10/15 [Rx] Atorvastatin Calcium [Lipitor] 80 mg PO HS 08/12/16 [History] Losartan [Cozaar] 25 mg PO DAILY 08/12/16 [History] Omeprazole [PriLOSEC] 40 mg PO DAILY 08/12/16 [History] Warfarin [Coumadin] 1.25 mg PO SUTUWETHFRSA 08/12/16 [History] Metoprolol [Lopressor] 100 mg PO BID #60 tablet 08/13/16 [Rx] Isosorbide MONOnitrate [Isosorbide Mononitrate ER] 120 mg PO DAILY 01/18/17 [ History] 3 Allergy/AdvReac Type Severity Reaction Status Date / Time No Known Allergies Allergy Verified 01/18/17 10:28 All Systems Review: A 10-system review of systems was performed and is negative for pertinent findings except as documented above in the HPI. Physical Examination Vital Signs, Last 4 Hours Resp BP 01/18/17 12:50 18 136/87 Results 01/18/17 10:41 01/18/17 10:41 Consult Discharge Plan - Plan Referrals: Mendel Hendricks MD [Primary Care Provider] -
[2017-01-18] MEDS ORDERED: Naloxone 0.4 MG/ML INJ IVP PRN (13:58)
[2017-01-18] MEDS ORDERED: Albuterol 2.5 MG/3 ML NEBULIZER IH PRN (14:44)
--- NOTE | 2017-01-18 14:44 | Internal Med History&Physical ---
Date of Encounter: 01/18/17 Time of Encounter: 14:37 Assessment and Plan (1) Chest pain Current visit: Yes Status: Acute Patient reports chest heaviness and occasional pain with exertion, accompanied by shortness of breath. His chest pain was relieved by nitro. Patient with history of CAD s/p stents as well as CHF and cardiomyopathy. He was found to have epidodes of v-tach in the ER, which were resolved after initiating the amiodarone drip. Chest pain likely angina related to CAD or the episodes of vtach. Continuous personnel monitor serial troponins cardiology consulted. echocardiogram Qualifiers: Chest pain type: precordial pain Qualified Code(s): R07.2 - Precordial pain (2) NSVT (nonsustained ventricular tachycardia) Current visit: Yes Status: Acute Patient had episodes of v.tach while being evaluated in ED. Cardiology was consulted and patient started on Amiodarone drip, with episodes subsiding. Continuous personnel monitor Increase metoprolol and Imdur per cardiology recommendations echocardiogram. (3) CAD (coronary artery disease) Current visit: Yes Status: Acute Patient has coronary artery disease s/p stent to RCA. Previous LCH demonstrated some in-stent re-stenosis. Patient reports dyspnea and chest heaviness on exertion. Cardiology consulted. Continuous personnel monitor continue plavix, beta glen, statin, imdur. Qualifiers: Coronary Disease-Associated Artery/Lesion type: [place] artery [place] vs. transplanted heart: menominee heart Associated angina: with stable angina Qualified Code(s): I25.118 - Atherosclerotic heart disease of [place] coronary artery with other forms of angina pectoris (4) COPD exacerbation Current visit: Yes Status: Acute Patient reporting productive cough and wheezing for the last 3 weeks. CXR showed no acute cardiopulmonary disease. WBC normal, afebrile. Rhonchi and rales on exam. Duoneb treatments TID budesonide/formotorol BID mucinex BID Prednisone 60mg PO daily titrate oxygen to maintain saturation. (5) Elevated troponin Current visit: Yes Status: Acute Troponin of 0.14 in the setting of episodes of vtach. Likely demand ischemia. Continuous personnel monitor serial troponins cardiology consulted. (6) Acute systolic (congestive) heart failure Current visit: Yes Status: Acute Patient with history of systolic CHF. He has been having some shortness of breath and has trace BLE edema. Will give 40mg lasix IVP daily. Daily weights, cardiac diet, strict I/Os (7) Sleep apnea Current visit: Yes Status: Chronic Respiratory consulted for CPAP. Qualifiers: Sleep apnea type: unspecified type Qualified Code(s): G47.30 - Sleep apnea , unspecified (8) A-fib Current visit: Yes Status: Acute Patient with history of afib, on metoprolol and coumadin. He was found to have episodes of vtach in the ED and was started on amiodarone drip. INR was 1.9. Pharmacy to dose coumadin. Continue home dose of metoprolol. Qualifiers: Atrial fibrillation type: persistent Qualified Code(s): I48.1 - Persistent atrial fibrillation (9) DVT prophylaxis Current visit: Yes Status: Acute anti-embolic stockings patient on coumadin for afib, additional pharmacologic prophylaxis not warranted. Internal Medicine - H&P: HPI Chief complaint: chest pain Admitted From: Emergency Dept Plans for Post Hospital Care: Home History of present illness: Mr. More is a 76 year old male with hypertension, hyperlipidemia, congestive heart failure, coronary artery disease status post stent placement, atrial fibrillation on Coumadin who presented to the emergency department today with complaints of intermittent chest pain and worsening shortness of breath with exertion. Patient reports that over the last several days he has had increasing chest heaviness and worsening shortness of breath with exertion. His chest pain is relieved by nitroglycerin. He is taking proximally 3 per day over the last couple of days. He denies any increased lightheadedness, palpitations, nausea, vomiting, fever or chills. He reports a mildly productive cough that has been going on for 3 weeks, and reports he has been diagnosed with bronchitis. While being evaluated in the emergency department he had several episodes of V. tach. Troponin was also elevated at 0.14. He was hypokalemic with potassium of 3.1. INR was subtherapeutic at 1.9. CXR showed no acute cardiopulmonary disease and stable cardiomegaly. Cardiology was consulted and patient was started on amiodarone drip and his intermittent episodes of v.tach subsided. On exam, patient alert and oriented, in no acute distress. Heart has irregular rhythm, with controlled rate. Lungs with diffuse rales and rhonchi. Abdomen soft, nontender, with positive bowel sounds. Trace BLE edema. Past Med Surg Social Fam HX - Past Medical History Medical history: aortic aneurysm, atrial fibrillation, cancer (hx of lung cancer s/p lobectomy, prostate cancer), cardiomyopathy, CHF, COPD, coronary artery disease, hyperlipidemia, hypertension, myocardial infarction Psychiatric history: anxiety - Past Surgical History Surgical History: angioplasty/stent, cancer surgery, sinus surgery - Social History Smoking Status: Former smoker Smokeless Tobacco Status: No Alcohol use: none Drug use: none - Family History Father Adopted: No Family Member Ethnicity: Non- Living Status: Hx Family Cardiac Disorders: Yes Hx Family Respiratory Disorders: No Hx Family Cancer: No Internal Medicine - H&P: Meds ALPRAZolam [Xanax 0.5 MG Tablet] 0.5 mg PO TID PRN 05/28/15 [History] Calcium Carbonate/Vitamin D3 [Calcium 600 + Vit D Tablet] 0.5 tab PO BID [History] Clopidogrel [Plavix] 75 mg PO QAM 05/28/15 [History] Nitroglycerin [Nitrostat] 0.4 mg SL AD PRN 05/28/15 [History] Furosemide [Lasix] 40 mg PO BIDDIURETIC #60 tablet 06/04/15 [Rx] Promethazine [Phenergan] 25 mg PO Q6HR PRN #16 tablet 08/10/15 [Rx] Atorvastatin Calcium [Lipitor] 80 mg PO HS 08/12/16 [History] Losartan [Cozaar] 25 mg PO DAILY 08/12/16 [History] Omeprazole [PriLOSEC] 40 mg PO DAILY 08/12/16 [History] Warfarin [Coumadin] 1.25 mg PO SUTUWETHFRSA 08/12/16 [History] Metoprolol [Lopressor] 100 mg PO BID #60 tablet 08/13/16 [Rx] Isosorbide MONOnitrate [Isosorbide Mononitrate ER] 120 mg PO DAILY 01/18/17 [ History] 3 Allergy/AdvReac Type Severity Reaction Status Date / Time No Known Allergies Allergy Verified 01/18/17 10:28 All Systems PM: A 10-system review of systems was performed and is negative for pertinent findings except as documented above in the HPI. - Constitutional Constitutional: no chills, no fever(s), no night sweats - EENT Eyes: no change in vision, no discharge, no pain, no photophobia Ears: no ear discharge, no ear pain, no tinnitus Nose, mouth and throat: no dysphagia, no nasal discharge, no neck pain, no sore throat - Cardiovascular Cardiovascular ROS IM: chest pain, dyspnea, dyspnea on exertion, no diaphoresis , no lightheadedness, no palpitations, no syncope - Respiratory Respiratory: cough, dyspnea, dyspnea on exertion, chest congestion, no wheezing , no excessive phlegm production - Gastrointestinal Gastrointestinal: no abdominal pain, no diarrhea, no hematemesis, no hematochezia, no melena, no nausea, no vomiting - Musculoskeletal Musculoskeletal ROS IM: no numbness, no tingling - Integumentary Integumentary IM: no rash, no unusual bruising - Neurological Neurological ROS: no confusion, no convulsions, no focal weakness, no numbness, no tingling, no tremor(s) - Hematologic/Lymphatic Hematologic/Lymphatic: no easy bruising - Constitutional Vitals: Temp Pulse Resp BP Pulse Ox 97.9 F 59 18 136/87 98 01/18/17 10:28 01/18/17 12:35 01/18/17 12:50 01/18/17 12:50 01/18/17 12:35 General appearance: Present: A&O X 3, pleasant, no acute distress - Head Head exam: Present: atraumatic, normocephalic - Eye Eye exam: Present: PERRL, conjuntiva pink, sclera anicteric Pupils: Present: PERRL - Neck Neck exam general surgery: Present: supple, trachea midline. Absent: lymphadenopathy - Respiratory Respiratory exam: Present: rales, rhonchi. Absent: accessory muscle use, wheezes - Cardiovascular Cardiovascular exam: Present: irregular rhythm, +S1, +S2. Absent: diastolic murmur, gallop, rubs, systolic murmur - GI/Abdominal GI/Abdominal exam: Present: normal bowel sounds, soft, no peritoneal signs. Absent: distended, tenderness - Extremities Exam Extremities exam: Present: pedal edema (trace bilateral), warm, radial pulses palpable and symmetrical. Absent: calf tenderness, cyanotic - Neurological Exam Neurological exam: Present: CN II-XII intact, oriented X3, no focal deficits. Absent: pronater drift, facial droop, speech deficit - Skin Skin exam: Present: dry, intact Internal Med - H&P Results - Labs CBC & Chem 7: 01/18/17 10:41 01/18/17 10:41 Labs: All Lab Results (24 Hours) 01/18/17 01/18/17 01/18/17 Range/Units 10:41 10:41 10:41 WBC 7.9 (4.3-11.1) K/mcL RBC 4.44 (4.19-5.50) M/mcL Hgb 11.6 L (12.9-16.9) g/dL Hct 36.2 L (37.5-50.1) % MCV 81.5 L (83.0-100.0) fL MCH 26.1 L (28.0-33.3) pg MCHC 32.0 (31.6-35.5) g/dL RDW 16.5 H (11.5-14.5) % Plt Count 187 (140-400) K/mcL MPV 10.6 (9.4-12.4) fL Immature Gran % 0.5 (0-4) % Seg Neutrophils % 70.6 % Lymphocytes % 19.2 % Monocytes % 8.0 % Eosinophils % 1.4 % Basophils % 0.3 % Neutrophils # 5.6 (1.6-8.9) K/mcL Lymphocytes # 1.5 (0.6-4.6) K/mcL Monocytes # 0.6 (0.0-1.3) K/mcL Eosinophils # 0.1 (0.0-0.6) K/mcL Basophils # 0.0 (0.0-0.2) K/mcL PT 20.5 H (9.4-12.1) Seconds INR 1.9 APTT 34.2 (26.0-36.0) Seconds Sodium 143 (136-145) mEq/L Potassium 3.1 L (3.5-4.5) mEq/L Chloride 105 (98-109) mEq/L Carbon Dioxide 31 H (19-29) mEq/L BUN 14 (8-26) mg/dL Creatinine 1.08 (0.72-1.25) mg/dL Est GFR ( Amer) > 60 (> 60) Est GFR (Non-Af Amer) > 60 (> 60) BUN/Creatinine Ratio 13 (6-26) Glucose 122 H (70-99) mg/dL Calculated Osmolality 298 (280-300) Calcium 9.1 (8.6-10.8) mg/dL Magnesium (1.6-2.6) mg/dL Troponin I (0-0.03) ng/mL Urine Color (Yellow) Urine Clarity (Clear) Urine pH (5.0-8.0) pH Units Ur Specific [place] (1.010-1.025) Urine Protein (Neg-Trace) mg/dL Urine Glucose (UA) (Normal) mg/dL Urine Ketones (Negative) mg/dL Urine Blood (Negative) Urine Nitrite (Negative) Urine Bilirubin (Negative) Urine Urobilinogen (Normal) mg/dL Ur Leukocyte Esterase (Negative) Urine Microscopic RBC (0-3) per hpf Urine Microscopic WBC (0-3) per hpf Ur Squamous Epith Cells (None-Few) per lpf Urine Bacteria (None-Few) per hpf Hyaline Casts (None-Few) per lpf Ur Culture Indicated? (NO) 01/18/17 01/18/17 01/18/17 Range/Units 10:41 11:23 14:33 WBC (4.3-11.1) K/mcL RBC (4.19-5.50) M/mcL Hgb (12.9-16.9) g/dL Hct (37.5-50.1) % MCV (83.0-100.0) fL MCH (28.0-33.3) pg MCHC (31.6-35.5) g/dL RDW (11.5-14.5) % Plt Count (140-400) K/mcL MPV (9.4-12.4) fL Immature Gran % (0-4) % Seg Neutrophils % % Lymphocytes % % Monocytes % % Eosinophils % % Basophils % % Neutrophils # (1.6-8.9) K/mcL Lymphocytes # (0.6-4.6) K/mcL Monocytes # (0.0-1.3) K/mcL Eosinophils # (0.0-0.6) K/mcL Basophils # (0.0-0.2) K/mcL PT (9.4-12.1) Seconds INR APTT (26.0-36.0) Seconds Sodium (136-145) mEq/L Potassium (3.5-4.5) mEq/L Chloride (98-109) mEq/L Carbon Dioxide (19-29) mEq/L BUN (8-26) mg/dL Creatinine (0.72-1.25) mg/dL Est GFR ( Amer) (> 60) Est GFR (Non-Af Amer) (> 60) BUN/Creatinine Ratio (6-26) Glucose (70-99) mg/dL Calculated Osmolality (280-300) Calcium (8.6-10.8) mg/dL Magnesium 1.7 (1.6-2.6) mg/dL Troponin I 0.14 H* (0-0.03) ng/mL Urine Color Yellow (Yellow) Urine Clarity Clear (Clear) Urine pH 6.0 (5.0-8.0) pH Units Ur Specific [place] 1.014 (1.010-1.025) Urine Protein 30 H (Neg-Trace) mg/dL Urine Glucose (UA) Normal (Normal) mg/dL Urine Ketones Negative (Negative) mg/dL Urine Blood Negative (Negative) Urine Nitrite Negative (Negative) Urine Bilirubin Negative (Negative) Urine Urobilinogen Normal (Normal) mg/dL Ur Leukocyte Esterase Trace H (Negative) Urine Microscopic RBC 0-3 (0-3) per hpf Urine Microscopic WBC 3-5 H (0-3) per hpf Ur Squamous Epith Cells Moderate H (None-Few) per lpf Urine Bacteria None Seen (None-Few) per hpf Hyaline Casts None Seen (None-Few) per lpf Ur Culture Indicated? YES A (NO) - Diagnostic Studies Chest x-ray Additional comments: Chest X-Ray 01/18/17 10:56 IMPRESSION: 1. No acute cardiopulmonary disease. 2. Stable cardiomegaly. 3. Stable postsurgical changes to the right hemithorax with associated scarring. D/ / 01/18/2017 11:49:45 Marisa Cabral MD / [email or web address] Interpreting Provider: Marisa Cabral MD
[2017-01-18] MEDS ORDERED: Nitroglycerin 0.4 MG TAB.SUBL SL PRN (15:28)
[2017-01-18] MEDS: Amiodarone Premix 360 MG/200 ML BAG IVC SCH (16:27)
[2017-01-18] MEDS: predniSONE 20 MG TABLET PO SCH (16:28)
[2017-01-18] MEDS ORDERED: Magnesium Sulfate 2 GM in D5% in Water 100 ML IVPB ONE (16:30)
[2017-01-18] MEDS ORDERED: *HR* Heparin 5,000 UNIT/ML VIAL IVP ONE (16:30)
[2017-01-18] MEDS ORDERED: *HR* Heparin 5,000 UNIT/ML VIAL IVP PRN ×2 (16:30)
--- NOTE | 2017-01-18 16:30 | Event Note ---
Date of Encounter: 01/18/17 Time of Encounter: 16:29 Patient seen and examined with nurse practitioner. Agree with assessment and plan. Patient presents with the main component of shortness of breath and intermittent chest pain. Etiology for shortness of breath is congestive heart failure as well as COPD exacerbation. We will start the patient IV Lasix steroids and nebulizer treatment for that. In the emergency room patient was found to have runs of nonsustained ventricular tachycardia. He is already on metoprolol 100 mg BID. Plan has been discussed with cardiology. amiodarone will be initiated. His potassium is 3.1 this will be replaced. Magnesium will be checked and replaced accordingly. Prognosis guarded
[2017-01-18] MEDS ORDERED: Furosemide 40 MG TABLET PO SCH (17:00)
[2017-01-18] MEDS ORDERED: Ipratropium/Albuterol Neb 3 ML IH SCH (17:00)
[2017-01-18] MEDS: Ipratropium/Albuterol Neb 3 ML IH SCH (17:08)
[2017-01-18 17:09] LABS: Hematocrit 33.3 % (37.5-50.1); Hemoglobin 10.4 g/dL (12.9-16.9); Mean Corpuscular HGB Conc 31.2 g/dL (31.6-35.5); Mean Corpuscular Hemoglobin 25.4 pg (28.0-33.3); Mean Corpuscular Volume 81.2 fL (83.0-100.0); Mean Platelet Volume 9.7 fL (9.4-12.4); Platelet Count 172 K/mcL (140-400); Red Cell Distribution Width 16.5 % (11.5-14.5)
[2017-01-18] MEDS: Heparin 25,000 UNIT/500 ML D5W 25,000 UNIT/500 ML MLS IVC SCH (17:11)
--- NOTE | 2017-01-18 17:11 | Emergency Department Note ---
Disposition Clinical Impression: Ventricular tachycardia Atrial fibrillation Qualifiers: Atrial fibrillation type: persistent Qualified Code(s): I48.1 - Persistent atrial fibrillation Disposition: Admitted As Inpatient Condition: Good Time of Disposition: 17:15 Arrhythmia/Palpitations HPI - General Chief Complaint: ED Chest Pain Stated Complaint: Chest Pain Time Seen by Provider: 01/18/17 10:34 Source: patient, family Limitations: no limitations Nursing Notes Reviewed: Yes Vital Signs Reviewed: Yes - History of Present Illness HPI Narrative: 76-year-old male presents to emergency Department with concerns of weakness. Patient states he has been having worsening dyspnea with exertion and chest discomfort. He complained of a shortness of breath and cough for the past few weeks. Yesterday he noted chest pain with minimal exertion. Today he developed increasing weakness and was noted to have multiple episodes of ventricular tachycardia. Patient states he was recently treated at [facility] in November 2015. He has a known stenosis of the RCA that was not amenable to PCI. Patient denies recent trauma. Denies recent changes in his medications. - Related Data Home Medications Medication Instructions Recorded Confirmed ALPRAZolam [Xanax 0.5 MG Tablet] 0.5 mg PO TID PRN 05/28/15 01/18/17 Calcium Carbonate/Vitamin D3 0.5 tab PO BID 05/28/15 01/18/17 [Calcium 600 + Vit D Tablet] Clopidogrel [Plavix] 75 mg PO QAM 05/28/15 01/18/17 Nitroglycerin [Nitrostat] 0.4 mg SL AD PRN 05/28/15 01/18/17 Atorvastatin Calcium [Lipitor] 80 mg PO HS 08/12/16 01/18/17 Losartan [Cozaar] 25 mg PO DAILY 08/12/16 01/18/17 Omeprazole [PriLOSEC] 40 mg PO DAILY 08/12/16 01/18/17 Warfarin [Coumadin] 1.25 mg PO SUTUWETHFRSA 08/12/16 01/18/17 Isosorbide MONOnitrate [Isosorbide 120 mg PO DAILY 01/18/17 01/18/17 Mononitrate ER] Previous Rx's Medication Instructions Recorded Furosemide [Lasix] 40 mg PO BIDDIURETIC #60 tablet 06/04/15 Promethazine [Phenergan] 25 mg PO Q6HR PRN #16 tablet 08/10/15 Metoprolol [Lopressor] 100 mg PO BID #60 tablet 08/13/16 Allergies Allergy/AdvReac Type Severity Reaction Status Date / Time No Known Allergies Allergy Verified 01/18/17 10:28 All systems ED: reviewed and negative except as stated. Constitutional: Reports: weakness. Denies: fever, chills, weight change Cardiovascular: Reports: palpitations, dyspnea on exertion. Denies: chest pain , syncope Respiratory: Denies: cough, dyspnea, wheezes Gastrointestinal: Reports: nausea. Denies: abdominal pain, vomiting Genitourinary: Denies: urgency, dysuria, frequency Past Medical History - Past Medical History Attestation: Yes The following information was validated with the patient. Source: patient Medical history: Reports: aortic aneurysm, atrial fibrillation, cancer (hx of lung cancer s/p lobectomy, prostate cancer), cardiomyopathy, CHF, COPD, coronary artery disease, hyperlipidemia, hypertension, myocardial infarction Surgical history: Reports: angioplasty/stent, cancer surgery, sinus surgery Psychiatric history: Reports: anxiety - Social History Smoking Status: Former smoker Smokeless Tobacco Status: No Alcohol use: Reports: none Drug use: Reports: none Physical Exam General: Alert and in no acute distress Skin: Warm, dry, intact Head: Normocephalic and atraumatic Neck: Supple, trachea midline and no tenderness Cardiovascular: Irregularly irregular rhythm, tachycardia, no murmur, normal perfusion Respiratory: CTAB, no wheezing, cough, or respiratory distress Musculoskeletal: Normal strength, no tenderness, swelling or deformity GI: Soft, nontender, nondistended. Bowel sounds present Neuro: A&O to person, place, time and situation. No focal deficits noted on exam Psychiatric: cooperative and appropriate mood and affect. - General Limitations: no limitations General appearance: alert, in no apparent distress Course Vital Signs Temperature 97.9 F 01/18/17 10:28 Pulse Rate 100 01/18/17 10:28 Respiratory Rate 18 01/18/17 10:28 Blood Pressure 125/85 01/18/17 10:28 O2 Sat by Pulse Oximetry 94 01/18/17 10:28 Temperature 98.1 F 01/18/17 16:11 Pulse Rate 72 01/18/17 16:11 Respiratory Rate 16 01/18/17 16:11 Blood Pressure 128/75 01/18/17 16:11 O2 Sat by Pulse Oximetry 95 01/18/17 16:11 Oxygen Delivery Oxygen Delivery Nasal Cannula Arrhythmia/Palpitations - [facility] Narrative Medical decision making narrative: I spoke with Dr. Ruiz, the music internship immediately after my initial evaluation. He agreed with the plan for treatment with amiodarone and will see the patient in the emergency department. The patient and evaluated the patient and recommended he be admitted to the hospital for further evaluation. Patient has not had a repeat episode of V. tach since starting the amiodarone. - Medical Records Medical records reviewed: Yes I reviewed the patient's medical records. - Lab Data Lab results reviewed: Yes I reviewed the patient's lab results. Result diagrams: 01/18/17 10:41 01/18/17 10:41 Lab Results 01/18/17 01/18/17 01/18/17 Range/Units 10:41 10:41 10:41 WBC 7.9 (4.3-11.1) K/mcL RBC 4.44 (4.19-5.50) M/mcL Hgb 11.6 L (12.9-16.9) g/dL Hct 36.2 L (37.5-50.1) % MCV 81.5 L (83.0-100.0) fL MCH 26.1 L (28.0-33.3) pg MCHC 32.0 (31.6-35.5) g/dL RDW 16.5 H (11.5-14.5) % Plt Count 187 (140-400) K/mcL MPV 10.6 (9.4-12.4) fL Immature Gran % 0.5 (0-4) % Seg Neutrophils % 70.6 % Lymphocytes % 19.2 % Monocytes % 8.0 % Eosinophils % 1.4 % Basophils % 0.3 % Neutrophils # 5.6 (1.6-8.9) K/mcL Lymphocytes # 1.5 (0.6-4.6) K/mcL Monocytes # 0.6 (0.0-1.3) K/mcL Eosinophils # 0.1 (0.0-0.6) K/mcL Basophils # 0.0 (0.0-0.2) K/mcL PT 20.5 H (9.4-12.1) Seconds INR 1.9 APTT 34.2 (26.0-36.0) Seconds Sodium 143 (136-145) mEq/L Potassium 3.1 L (3.5-4.5) mEq/L Chloride 105 (98-109) mEq/L Carbon Dioxide 31 H (19-29) mEq/L BUN 14 (8-26) mg/dL Creatinine 1.08 (0.72-1.25) mg/dL Est GFR ( Amer) > 60 (> 60) Est GFR (Non-Af Amer) > 60 (> 60) BUN/Creatinine Ratio 13 (6-26) Glucose 122 H (70-99) mg/dL Calculated Osmolality 298 (280-300) Calcium 9.1 (8.6-10.8) mg/dL Troponin I (0-0.03) ng/mL Urine Color (Yellow) Urine Clarity (Clear) Urine pH (5.0-8.0) pH Units Ur Specific [place] (1.010-1.025) Urine Protein (Neg-Trace) mg/dL Urine Glucose (UA) (Normal) mg/dL Urine Ketones (Negative) mg/dL Urine Blood (Negative) Urine Nitrite (Negative) Urine Bilirubin (Negative) Urine Urobilinogen (Normal) mg/dL Ur Leukocyte Esterase (Negative) Urine Microscopic RBC (0-3) per hpf Urine Microscopic WBC (0-3) per hpf Ur Squamous Epith Cells (None-Few) per lpf Urine Bacteria (None-Few) per hpf Hyaline Casts (None-Few) per lpf Ur Culture Indicated? (NO) 01/18/17 01/18/17 Range/Units 10:41 11:23 WBC (4.3-11.1) K/mcL RBC (4.19-5.50) M/mcL Hgb (12.9-16.9) g/dL Hct (37.5-50.1) % MCV (83.0-100.0) fL MCH (28.0-33.3) pg MCHC (31.6-35.5) g/dL RDW (11.5-14.5) % Plt Count (140-400) K/mcL MPV (9.4-12.4) fL Immature Gran % (0-4) % Seg Neutrophils % % Lymphocytes % % Monocytes % % Eosinophils % % Basophils % % Neutrophils # (1.6-8.9) K/mcL Lymphocytes # (0.6-4.6) K/mcL Monocytes # (0.0-1.3) K/mcL Eosinophils # (0.0-0.6) K/mcL Basophils # (0.0-0.2) K/mcL PT (9.4-12.1) Seconds INR APTT (26.0-36.0) Seconds Sodium (136-145) mEq/L Potassium (3.5-4.5) mEq/L Chloride (98-109) mEq/L Carbon Dioxide (19-29) mEq/L BUN (8-26) mg/dL Creatinine (0.72-1.25) mg/dL Est GFR ( Amer) (> 60) Est GFR (Non-Af Amer) (> 60) BUN/Creatinine Ratio (6-26) Glucose (70-99) mg/dL Calculated Osmolality (280-300) Calcium (8.6-10.8) mg/dL Troponin I 0.14 H* (0-0.03) ng/mL Urine Color Yellow (Yellow) Urine Clarity Clear (Clear) Urine pH 6.0 (5.0-8.0) pH Units Ur Specific [place] 1.014 (1.010-1.025) Urine Protein 30 H (Neg-Trace) mg/dL Urine Glucose (UA) Normal (Normal) mg/dL Urine Ketones Negative (Negative) mg/dL Urine Blood Negative (Negative) Urine Nitrite Negative (Negative) Urine Bilirubin Negative (Negative) Urine Urobilinogen Normal (Normal) mg/dL Ur Leukocyte Esterase Trace H (Negative) Urine Microscopic RBC 0-3 (0-3) per hpf Urine Microscopic WBC 3-5 H (0-3) per hpf Ur Squamous Epith Cells Moderate H (None-Few) per lpf Urine Bacteria None Seen (None-Few) per hpf Hyaline Casts None Seen (None-Few) per lpf Ur Culture Indicated? YES A (NO) - Radiology Data Radiology results reviewed: Yes I reviewed the patient's radiology results. - EKG Data EKG attestation: Yes I reviewed and interpreted this EKG. EKG results narrative: Initial EKG showed 136 atrial fibrillation with PVCs again without evidence of STEMI however it did show sustained V. tach with 10 beats.. Repeat EKG showed atrial fibrillation with a rate of 101 without evidence of STEMI. Critical Care Time Critical Care Time: Yes Total Critical Care Time: 120 Attestation: The high probability of a clinically significant, sudden or life threatening deterioration of the cardiovascular system(s) required my full and direct attention, intervention and personal management. The aggregate critical care time was 120 minutes. This time is in addition to time spent performing reported procedures but includes the following: x Data Review and interpretation x Patient assessment and monitoring of vital signs x Documentation x Medication orders and management
[2017-01-18 17:13] LABS: INR 1.9; Prothrombin Time 20.4 Seconds (9.4-12.1)
[2017-01-18 17:14] LABS: Magnesium 1.6 mg/dL (1.6-2.6); Potassium 3.5 mEq/L (3.5-4.5)
[2017-01-18 17:16] LABS: Activated Partial Thrombo Time 35.6 Seconds (26.0-36.0)
[2017-01-18] MEDS: Furosemide 40 MG/4 ML VIAL IVP SCH (17:16)
[2017-01-18] MEDS ORDERED: Warfarin perPT PO PRN (18:00)
[2017-01-18] MEDS ORDERED: *HR* Warfarin 3 MG TABLET PO SCH (18:00)
[2017-01-18] MEDS: Magnesium Oxide 400 MG TABLET PO SCH (18:51)
[2017-01-18] MEDS: Metoprolol 100 MG TABLET PO SCH (18:51)
[2017-01-18] MEDS: Isosorbide MONOnitrate (24 HR) 30 MG TAB.ER.24H PO SCH (18:51)
[2017-01-18] MEDS: ALPRAZolam 0.5 MG TABLET PO PRN (19:33)
[2017-01-18] MEDS: Budesonide/Formoterol 160/4.5 MDI IH SCH (20:39)
[2017-01-19] MEDS: Ipratropium/Albuterol Neb 3 ML IH SCH ×4 (00:23→23:00)
[2017-01-19] MEDS: Amiodarone Premix 360 MG/200 ML BAG IVC SCH (04:18)
[2017-01-19 05:53] LABS: Hematocrit 33.3 % (37.5-50.1); Hemoglobin 10.2 g/dL (12.9-16.9); Lymphocytes # 0.6 K/mcL (0.6-4.6); Lymphocytes % 9.3 %; Mean Corpuscular HGB Conc 30.6 g/dL (31.6-35.5); Mean Corpuscular Hemoglobin 24.9 pg (28.0-33.3); Mean Corpuscular Volume 81.2 fL (83.0-100.0); Mean Platelet Volume 10.1 fL (9.4-12.4); Monocytes # 0.1 K/mcL (0.0-1.3); Monocytes % 1.9 %; Neutrophils # 5.2 K/mcL (1.6-8.9); Platelet Count 186 K/mcL (140-400); Red Cell Distribution Width 16.5 % (11.5-14.5); Segmented Neutrophils % 87.8 %
[2017-01-19 05:58] LABS: INR 1.8; Prothrombin Time 20.1 Seconds (9.4-12.1)
[2017-01-19 06:20] LABS: BUN/Creatinine Ratio 14 (6-26); Blood Urea Nitrogen 15 mg/dL (8-26); Calcium 8.5 mg/dL (8.6-10.8); Carbon Dioxide 25 mEq/L (19-29); Chloride 106 mEq/L (98-109); Chol/HDL Ratio 2.5 (0-4.9); Cholesterol 107 mg/dL (< 200); Glucose 158 mg/dL (70-99); HDL Cholesterol 42 mg/dL (40-59); LDL Cholesterol,Calculated 55 mg/dL (0-99); Osmolality,Calculated 292 (280-300); Potassium 3.6 mEq/L (3.5-4.5); Sodium 139 mEq/L (136-145); Triglycerides 52 mg/dL (< 150); eGFR For African Americans > 60 (> 60); eGFR For Non-African Americans > 60 (> 60)
[2017-01-19] MEDS: Magnesium Oxide 400 MG TABLET PO SCH (08:30)
[2017-01-19] MEDS: predniSONE 20 MG TABLET PO SCH (08:30)
[2017-01-19] MEDS: Furosemide 40 MG/4 ML VIAL IVP SCH (08:31)
[2017-01-19] MEDS: Metoprolol 100 MG TABLET PO SCH ×2 (08:34→17:55)
[2017-01-19] MEDS: Isosorbide MONOnitrate (24 HR) 30 MG TAB.ER.24H PO SCH (08:35)
--- NOTE | 2017-01-19 09:29 | Cardiology Progress Note ---
Date of Encounter: 01/19/17 Time of Encounter: 09:23 Assessment and Plan (1) Chest pain Current Visit: No Status: Acute Typical chest pain symptoms. Known CAD as described. Initial EKG shows atrial fibrillation and 10 beats NSVT. No acute ST changed identified. Mild troponin elevation at 0.12, 0.15, 0.14 in the setting of NSVT and COPD exacerbation. Likely demand ischemia. Check TTE. Increase imdur to 120 mg BID yesterday. Denies recurrent chest pain. No recurrent NSVT over last 12 hours. Recommend ambulation today. We will continue to monitor with you. Qualifiers: Chest pain type: precordial pain Qualified Code(s): R07.2 - Precordial pain (2) NSVT (nonsustained ventricular tachycardia) Current Visit: No Status: Acute Known history of VT seen 07/2016 during in-patient stay and on Holter. Recommended to go to [facility] at that time for further management and he declined. 12 hour telemetry review shows no recurrent NSVT. Occasional couplet and multifocal PVC seen. Avg HR 74 bpm, afib. K3.1-and now 3.6. Mag nesium 1.6 and now 2.0. WIll start on oral supplement daily. On oral mag ox. Keep potassium around 4.0 and magnesium around 2.0. Discussed with Dr. Ruiz. We will stop amiodarone and increase metoprolol as tolerated. Continue to monitor telemetry. (3) CAD (coronary artery disease) Current Visit: No Status: Acute H/o CAD s/p multiple PCI. Most recently stent placed 05/2015. Previous cardiac testing; Non-exercise nuclear stress test 12/16/15 ([facility]): negative for reversible ischemia , large perfusion defect in the inferolateral-inferior wall from base to apex; gated EF=42% TTE 05/28/15: EF 45-50%, hypokinesis of the basal-mid inferior lateral wall LHC 06/01/16: severe 1v CAD, mild-moderate LV dysfunction, EF 40%, successful PTCA/GISELLE in the pRCA with residual 40-50% stenosis. Otherwise, 30% LMCA, 30% mLAD, 20% 1OM, and 60-70% dRCA Continue asa, statin, imdur, and bb. Qualifiers: Coronary Disease-Associated Artery/Lesion type: [place] artery [place] vs. transplanted heart: [place] heart Associated angina: with stable angina Qualified Code(s): I25.118 - Atherosclerotic heart disease of [place] coronary artery with other forms of angina pectoris (4) A-fib Current Visit: Yes Status: Acute Currently rate controlled afib on coumadin therapy. On heparin gtt with coumadin held incase C indicated. Ok to restart if no change on TTE and no recurrent chest pain. Qualifiers: Atrial fibrillation type: persistent Qualified Code(s): I48.1 - Persistent atrial fibrillation (5) Ischemic cardiomyopathy Current Visit: No Status: Acute TTE 07/2016 showed EF 45%.Mildly dilated left ventricle. Mild segmental left ventricular systolic dysfunction. Indeterminate diastolic function. Normal right ventricular structure and function. Mild mitral regurgitation. Mild pulmonary hypertension. CXR shows no acute process. Check BNP Denies weight gain or swelling. Currently appears euvolemic. IV lasix per primary team. He reports he is feeling better. On beta-glen and arb. Discussion w patient/family: The assessment and plan as outlined above was discussed with the patient and/or family members who expressed understanding and agreement. All questions were answered. Thank you for involving us in the care of your patient. Please call with any questions. Subjective Principal diagnosis: NSVT, COPD Interval history: Mr. More reports he is feeling better. Continues to have productive cough. Denies recurrent chest pain. Objective Vital Signs, Last 4 Hours Temp Pulse Resp BP Pulse Ox 01/19/17 07:10 97.8 F 64 17 136/81 98 01/19/17 06:15 64 136/81 General: Conversant, No Apparent Distress HEENT: Atraumatic, Normocephaly, Mucus Membranes Moist Neck: No JVD, Normal carotid pulses Cardiac: Other (Irregularly irregular) Lungs: Normal Breath Sounds, No Wheeze, Rales, Rhonchi, Other (Lungs now clear, moist cough noted) Neuro: Alert and responsive, No focal deficits noted Abdomen: Soft, Non-Tender Skin: No rashes noted on visualized skin Musculoskeletal: No Chest Wall Tenderness Extremities: No Clubbing, No Cyanosis, No Edema, Normal Pulses Results 01/19/17 05:02 01/19/17 05:02 Lab Results 01/18/17 01/18/17 01/18/17 14:33 17:00 17:00 WBC Hgb Hct Plt Count INR APTT Sodium Potassium 3.5 Chloride Carbon Dioxide BUN Creatinine Glucose Calcium Magnesium 1.7 1.6 Troponin I 0.15 H* B-Natriuretic Peptide 01/18/17 01/18/17 01/18/17 17:00 17:00 22:52 WBC 7.6 Hgb 10.4 L Hct 33.3 L Plt Count 172 INR 1.9 APTT 35.6 Sodium Potassium Chloride Carbon Dioxide BUN Creatinine Glucose Calcium Magnesium Troponin I 0.12 H* B-Natriuretic Peptide 01/18/17 01/19/17 01/19/17 22:52 05:02 05:02 WBC 5.9 Hgb 10.2 L Hct 33.3 L Plt Count 186 INR APTT 100.2 H D Sodium 139 Potassium 3.6 Chloride 106 Carbon Dioxide 25 BUN 15 Creatinine 1.05 Glucose 158 H Calcium 8.5 L Magnesium 2.0 Troponin I B-Natriuretic Peptide 01/19/17 01/19/17 05:02 05:02 WBC Hgb Hct Plt Count INR 1.8 APTT 68.0 H Sodium Potassium Chloride Carbon Dioxide BUN Creatinine Glucose Calcium Magnesium Troponin I B-Natriuretic Peptide 1155 H - Imaging and Cardiology Echo: pending - EKG Interpretation EKG results cardiology: personally reviewed Consult Discharge Plan - Plan Referrals: Ivelisse Mitchell MD [Partnered Physician] - (CARDIOLOGY WILL CALL PATIENT AT HOME WITH A FOLLOW UP APPOINTMENT) Mendle Hendricks MD [Primary Care Provider] - (SENT REQUEST ON 01-18-17 @ [id number])
--- NOTE | 2017-01-19 10:05 | Internal Med Progress Note ---
Date of Encounter: 01/19/17 Time of Encounter: 09:40 - Assessment and plan (1) Acute systolic (congestive) heart failure Current Visit: Yes Status: Acute Assessment and plan: Patient denies knowledge of a history of CHF. He presents with exertional dyspnea, intermittent chest pain, noted to have peripheral edema and BNP 1155. Echocardiogram from July 2016 shows moderately reduced EF around 45% with indeterminate diastolic function and segmental LV dysfunction. F/up repeat Echo. Cardiology on board. Continue IV Lasix along with fluid restriction, urine output monitoring and daily weights. Continue beta glen, ARB and nitrate; dose of Imdur has been increased to 240mg daily per Cardiology; (2) NSVT (nonsustained ventricular tachycardia) Current Visit: Yes Status: Acute Assessment and plan: Noted to have runs of nonsustained ventricular tachycardia in the emergency room. Cardiology follow-up appreciated, patient has been started on IV amiodarone drip at admission, which has been discontinued this morning. Plan to titrate beta glen and monitor heart rate and telemetry closely. Continue IV heparin drip. Monitor electrolytes closely. (3) COPD exacerbation Current Visit: Yes Status: Acute Assessment and plan: Noted to have a moist cough and wheezing at admission, currently improving. Continue bronchodilators, supplemental oxygen and oral steroids. Patient is noted to have home oxygen, however noncompliant. (4) A-fib Current Visit: Yes Status: Chronic Assessment and plan: Currently rate controlled. Continue beta glen, uptitrate as needed. Long- term anticoagulation with Coumadin, currently held for possible left heart catheterization depending on echocardiogram results. Continue IV heparin drip. Qualifiers: Atrial fibrillation type: persistent Qualified Code(s): I48.1 - Persistent atrial fibrillation (5) Hyperlipidemia Current Visit: Yes Status: Chronic Qualifiers: Hyperlipidemia type: mixed hyperlipidemia Qualified Code(s): E78.2 - Mixed hyperlipidemia (6) Hypertension Current Visit: Yes Status: Chronic Qualifiers: Hypertension type: essential hypertension Qualified Code(s): I10 - Essential (primary) hypertension (7) CAD (coronary artery disease) Current Visit: Yes Status: Chronic Qualifiers: Coronary Disease-Associated Artery/Lesion type: [place] artery [place] vs. transplanted heart: [place] heart Associated angina: with stable angina Qualified Code(s): I25.118 - Atherosclerotic heart disease of [place] coronary artery with other forms of angina pectoris (8) Ischemic cardiomyopathy Current Visit: Yes Status: Chronic (9) Sleep apnea Current Visit: Yes Status: Chronic Qualifiers: Sleep apnea type: unspecified type Qualified Code(s): G47.30 - Sleep apnea , unspecified - Subjective Interval history: Continues to feel short of breath, worse with exertion; no chest pain or palpitations; does have leg swelling and facial swelling although he denies having h/o- CHF; off IV Amiodarone drip. - Constitutional Vitals: Temp Pulse Resp BP Pulse Ox 97.8 F 64 17 136/81 98 01/19/17 07:10 01/19/17 07:10 01/19/17 07:10 01/19/17 07:10 01/19/17 07:10 General appearance: Present: mild distress, A&O X 3, obese, answers questions appropriately - Respiratory Respiratory exam: Present: CTAB. Absent: accessory muscle use, rales, rhonchi, wheezes - Cardiovascular Cardiovascular exam: Present: irregular rhythm, +S1, +S2, tachycardia. Absent: diastolic murmur, gallop, rubs, systolic murmur - GI/Abdominal GI/Abdominal exam: Present: normal bowel sounds, soft, no peritoneal signs. Absent: distended, tenderness - Extremities Exam Extremities exam: Present: full ROM, pedal edema, warm, radial pulses palpable and symmetrical. Absent: calf tenderness, cyanotic - Neurological Exam Neurological exam: Present: CN II-XII intact, oriented X3, no focal deficits. Absent: pronater drift, facial droop, speech deficit - Skin Skin exam: Present: dry, intact Internal Medicine: Result - Labs CBC & Chem 7: 01/19/17 05:02 01/19/17 05:02 Labs: Short CBC 01/18/17 01/19/17 Range/Units 17:00 05:02 WBC 7.6 5.9 (4.3-11.1) K/mcL Hgb 10.4 L 10.2 L (12.9-16.9) g/dL Hct 33.3 L 33.3 L (37.5-50.1) % Plt Count 172 186 (140-400) K/mcL Neutrophils # 5.2 (1.6-8.9) K/mcL BMP 01/18/17 01/19/17 17:00 05:02 Sodium 139 Potassium 3.5 3.6 Chloride 106 Carbon Dioxide 25 BUN 15 Creatinine 1.05 Glucose 158 H Calcium 8.5 L Cardiac Enzymes 01/18/17 01/18/17 Range/Units 17:00 22:52 Troponin I 0.15 H* 0.12 H* (0-0.03) ng/mL - ABG Interpretation ABG results: PT/INR, D-dimer PT 20.1 Seconds (9.4-12.1) H 01/19/17 05:02 Consult Discharge Plan - Plan Referrals: Ivelisse Mitchell MD [Partnered Physician] - (CARDIOLOGY WILL CALL PATIENT AT HOME WITH A FOLLOW UP APPOINTMENT) Mendel Hendricks MD [Primary Care Provider] - (SENT REQUEST ON 01-18-17 @ 0074)
[2017-01-19] MEDS: Budesonide/Formoterol 160/4.5 MDI IH SCH ×2 (11:03→23:00)
--- NOTE | 2017-01-19 12:05 | Electrocardiograph Report ---
[address] [address] Test Date: 2017-01-18 Pat Name: Rajinder More Department: 103 Room: 2N04 Gender: M Hospital Administrative Assistant: LIZET : 1940 Requested By: Gopi Oshea Order Number: [id number] Reading MD: Erika Call Measurements Intervals [place] Rate: 101 P: RI: 0 QRS: 59 QRSD: 126 T: 19 QT: 374 QTc: 432 Interpretive Statements UNCERTAIN IRREGULAR RHYTHM MODERATE INTRAVENTRICULAR CONDUCTION DELAY [110+ ms QRS DURATION] Non sustained ventricular tachycardia Electronically Signed On 01-19-2017 12:04:15 EDT by Erika Call
--- NOTE | 2017-01-19 12:07 | Electrocardiograph Report ---
[place] [address] Test Date: 2017-01-18 Pat Name: Rajinder More Department: 103 Room: 2N04 Gender: M Radiological Equipment Specialist: LIZET : 1940 Requested By: Gopi Oshea Order Number: [id number] Reading MD: Erika Call Measurements Intervals [place] Rate: 90 P: 28 OR: 244 QRS: 60 QRSD: 117 T: 7 QT: 378 QTc: 426 Interpretive Statements FREQUENT VENTRICULAR PREMATURE COMPLEXES WITH MARKED RHYTHM IRREGULARITY, POSSIBLE ATRIAL FIBRILLATION MODERATE INTRAVENTRICULAR CONDUCTION DELAY [110+ ms QRS DURATION] Premature complex ventricular or aberrant supravent Electronically Signed On 01-19-2017 12:06:18 EDT by Erika Call
[2017-01-19] MEDS ORDERED: *HR* Warfarin 3 MG TABLET PO SCH (18:00)
[2017-01-19] MEDS: ALPRAZolam 0.5 MG TABLET PO PRN (19:07)
[2017-01-19] MEDS: Heparin 25,000 UNIT/500 ML D5W 25,000 UNIT/500 ML MLS IVC SCH (21:25)
[2017-01-20] MEDS: ALPRAZolam 0.5 MG TABLET PO PRN ×2 (03:22→19:00)
[2017-01-20] MEDS: Furosemide 40 MG/4 ML VIAL IVP SCH ×2 (08:17→16:34)
[2017-01-20] MEDS: Isosorbide MONOnitrate (24 HR) 30 MG TAB.ER.24H PO SCH (08:18)
[2017-01-20] MEDS: Magnesium Oxide 400 MG TABLET PO SCH (08:18)
[2017-01-20] MEDS: Metoprolol 100 MG TABLET PO SCH ×2 (08:23→18:18)
[2017-01-20] MEDS: predniSONE 20 MG TABLET PO SCH (08:23)
[2017-01-20] MEDS: Ipratropium/Albuterol Neb 3 ML IH SCH ×3 (10:22→21:55)
[2017-01-20] MEDS: Budesonide/Formoterol 160/4.5 MDI IH SCH ×2 (10:22→21:56)
--- NOTE | 2017-01-20 11:17 | Internal Med Progress Note ---
Date of Encounter: 01/20/17 Time of Encounter: 11:15 - Assessment and plan (1) Acute systolic (congestive) heart failure Current Visit: Yes Status: Acute Assessment and plan: Improving slowly. Not noted to have appropriate net negative fluid balance, will increase IV Lasix to twice daily. Continue fluid restriction, urine output monitoring and daily weights. Discussed the importance of fluid restriction and twice-daily Lasix with patient, who verbalized understanding. Continue beta glen, ARB and nitrate; echocardiogram shows mild to moderate decrease in ejection fraction around 45%, mild concentric left ventricular hypertrophy, indeterminate diastolic function, moderate pulmonary hypertension. Cardiology follow-up appreciated, currently signed off. (2) NSVT (nonsustained ventricular tachycardia) Current Visit: Yes Status: Acute Assessment and plan: Noted to have runs of nonsustained ventricular tachycardia in the emergency room. Cardiology follow-up appreciated, recommended to continue current doses of beta glen. No further events of V. tach on overnight telemetry. Monitor electrolytes closely. (3) COPD exacerbation Current Visit: Yes Status: Acute Assessment and plan: Noted to have a moist cough and wheezing at admission, currently improving. Continue bronchodilators, supplemental oxygen and taper down oral steroids. Patient is noted to have home oxygen, however noncompliant. (4) A-fib Current Visit: Yes Status: Chronic Assessment and plan: Currently rate controlled. Continue beta glen. Long-term anticoagulation with Coumadin, will restart Coumadin and discontinue IV heparin drip. Qualifiers: Atrial fibrillation type: chronic Qualified Code(s): I48.2 - Chronic atrial fibrillation (5) Hyperlipidemia Current Visit: Yes Status: Chronic Qualifiers: Hyperlipidemia type: mixed hyperlipidemia Qualified Code(s): E78.2 - Mixed hyperlipidemia (6) Hypertension Current Visit: Yes Status: Chronic Assessment and plan: Blood pressure noted to be better controlled. Continue current regimen. Qualifiers: Hypertension type: essential hypertension Qualified Code(s): I10 - Essential (primary) hypertension (7) CAD (coronary artery disease) Current Visit: Yes Status: Chronic Qualifiers: Coronary Disease-Associated Artery/Lesion type: [place] artery [place] vs. transplanted heart: [place] heart Associated angina: with stable angina Qualified Code(s): I25.118 - Atherosclerotic heart disease of [place] coronary artery with other forms of angina pectoris (8) Ischemic cardiomyopathy Current Visit: Yes Status: Chronic (9) Sleep apnea Current Visit: Yes Status: Chronic Qualifiers: Sleep apnea type: unspecified type Qualified Code(s): G47.30 - Sleep apnea , unspecified - Subjective Interval history: Feels better; no chest pain or dyspnea but reports anxiety, near syncope towards evening, which improves with Xanax. Very talkative; had a long discussion about his heart conditions- CHF, a.fib, CAD; discussed about fluid restriction and Lasix use, verbalized understanding. Refuses ICD placement, if indicated. - Constitutional Vitals: Temp Pulse Resp BP Pulse Ox 97.8 F 89 18 147/85 97 01/20/17 08:36 01/20/17 08:36 01/20/17 10:23 01/20/17 08:36 01/20/17 10:23 General appearance: Present: A&O X 3, obese, answers questions appropriately - Respiratory Respiratory exam: Present: CTAB. Absent: accessory muscle use, rales, rhonchi, wheezes - Cardiovascular Cardiovascular exam: Present: irregular rhythm, +S1, +S2. Absent: diastolic murmur, gallop, rubs, systolic murmur - GI/Abdominal GI/Abdominal exam: Present: normal bowel sounds, soft (obese), no peritoneal signs. Absent: distended, tenderness - Extremities Exam Extremities exam: Present: pedal edema (2+ pitting pedal edema B/L), warm, radial pulses palpable and symmetrical. Absent: calf tenderness, cyanotic - Neurological Exam Neurological exam: Present: CN II-XII intact, oriented X3, no focal deficits. Absent: pronater drift, facial droop, speech deficit Internal Medicine: Result - Labs CBC & Chem 7: 01/19/17 05:02 01/19/17 05:02 - ABG Interpretation ABG results: PT/INR, D-dimer PT 20.1 Seconds (9.4-12.1) H 01/19/17 05:02 - Impressions Impressions Echocardiogram 01/19/17 08:11 Impressions: LVEF 45%. Mild concentric left ventricular hypertrophy. Indeterminate diastolic function. Mild segmental left ventricular systolic dysfunction. Normal right ventricular structure and function. Moderate pulmonary hypertension. No significant valvular dysfunction. No significant change compared to prior TTE report. Left Ventricular Wall Motion: Rest Echo Findings The mid inferior, basal inferior and basal inferior lateral james were hypokinetic. All other wall segments showed normal motion. Findings: Study Quality * Technically adequate exam. ECG Findings * Atrial fibrillation, BBB. Left Ventricle * LVEF 45%. * Normal LV chamber size. * Mild concentric left ventricular hypertrophy. * Indeterminate diastolic function. * Mild segmental left ventricular systolic dysfunction. Right Ventricle * Normal right ventricular structure and function. Left Atrium * Mildly dilated left atrium. Right Atrium * Moderately dilated right atrium. Interatrial Septum * Interatrial septum not well evaluated. Aortic Valve * Aortic valve not well visualized. * Grossly, mildly calcified aortic valve leaflets. * No aortic regurgitation. * No aortic stenosis. Mitral Valve * Mild mitral annular calcification. * No mitral regurgitation. * No mitral stenosis. Tricuspid Valve * Normal tricuspid valve structure. * Trace tricuspid regurgitation. * Moderate pulmonary hypertension. Pulmonic Valve * Pulmonic valve not well visualized. Aorta * Normally sized aortic root. Pericardium * The pericardium appears normal. IVC * Normal IVC dimensions and inspiratory collapse. Pulmonary Artery * Normal visualized portions of the main pulmonary artery. - VTE Documentation of Mechanical Device: Graduated compression elastic hosiery Consult Discharge Plan - Plan Referrals: Ivelisse Mitchell MD [Partnered Physician] - (CARDIOLOGY WILL CALL PATIENT AT HOME WITH A FOLLOW UP APPOINTMENT) Menedl Hendricks MD [Primary Care Provider] - 01/24/17 10:00 am ()
--- NOTE | 2017-01-20 11:33 | Cardiology Progress Note ---
Date of Encounter: 01/20/17 Time of Encounter: 11:30 Assessment and Plan (1) Chest pain Current Visit: No Status: Acute Typical chest pain symptoms prior to admission. Known CAD as described. Initial EKG shows atrial fibrillation and 10 beats NSVT. No acute ST changed identified. Mild troponin elevation at 0.12, 0.15, 0.14 in the setting of NSVT and COPD exacerbation. Likely demand ischemia. TTE shows EF 45%, no change from previous TTE. Increase imdur to 120 mg BID and metoprolol increased to 150 mg BID.Denies recurrent chest pain. One 3 beat run NSVT seen last 24 hours. Ambulating in room without difficulty. No further cardiac testing at this time. Out-pt f/u with Dr. Boyer will be coordinated by [facility]. Cardiology signing off. Call with questions. Qualifiers: Chest pain type: precordial pain Qualified Code(s): R07.2 - Precordial pain (2) NSVT (nonsustained ventricular tachycardia) Current Visit: Yes Status: Acute Known history of VT seen 07/2016 during in-patient stay and on Holter. Recommended to go to [facility] at that time for further management and he declined. Metoprolol increased to 150 mg BID. Tolerating well. 12 hour telemetry review shows no significant NSVT in the past 24 hours. Occasional couplet, one triplet, and multifocal PVC seen. Avg HR 83 bpm, afib. K3.1-and now 3.6. Magnesium 1.6 2.0. On oral magnesium and potassium supplement daily. Keep potassium around 4.0 and magnesium around 2.0. (3) CAD (coronary artery disease) Current Visit: Yes Status: Chronic H/o CAD s/p multiple PCI. Most recently stent placed 05/2015. Previous cardiac testing; Non-exercise nuclear stress test 12/16/15 ([facility]): negative for reversible ischemia , large perfusion defect in the inferolateral-inferior wall from base to apex; gated EF=42% TTE 05/28/15: EF 45-50%, hypokinesis of the basal-mid inferior lateral wall LHC 06/01/16: severe 1v CAD, mild-moderate LV dysfunction, EF 40%, successful PTCA/GISELLE in the pRCA with residual 40-50% stenosis. Otherwise, 30% LMCA, 30% mLAD, 20% 1OM, and 60-70% dRCA Continue asa, statin, imdur, and bb. Qualifiers: Coronary Disease-Associated Artery/Lesion type: [place] artery [place] vs. transplanted heart: [place] heart Associated angina: with stable angina Qualified Code(s): I25.118 - Atherosclerotic heart disease of [place] coronary artery with other forms of angina pectoris (4) A-fib Current Visit: Yes Status: Chronic Currently rate controlled afib on coumadin therapy. OK to restart coumadin. No procedures this admission. Qualifiers: Atrial fibrillation type: chronic Qualified Code(s): I48.2 - Chronic atrial fibrillation (5) Ischemic cardiomyopathy Current Visit: Yes Status: Chronic TTE 07/2016 showed EF 45%.Mildly dilated left ventricle. Mild segmental left ventricular systolic dysfunction. Indeterminate diastolic function. Normal right ventricular structure and function. Mild mitral regurgitation. Mild pulmonary hypertension. CXR shows no acute process. Check BNP Denies weight gain or swelling. Currently appears euvolemic. IV lasix per primary team. He reports he is feeling better. On beta-glen and arb. Discussion w patient/family: The assessment and plan as outlined above was discussed with the patient and/or family members who expressed understanding and agreement. All questions were answered. Thank you for involving us in the care of your patient. Please call with any questions. Subjective Principal diagnosis: NSVT, COPD Interval history: Denies recurrent chest pain. C/o "panic attacks" every evening prior to going to sleep. Denies chest pain. C/o some SOB with episodes. Reports being on xanax for long period of time and it is the only thing that helps him. He is concerned he will no longer be prescribed this medication. Encouraged to continue to discuss with PCP. Objective Vital Signs, Last 4 Hours Temp Pulse Resp BP Pulse Ox 01/20/17 11:00 108 16 135/99 95 01/20/17 10:23 18 97 01/20/17 08:36 97.8 F 89 14 147/85 98 General: Conversant, No Apparent Distress HEENT: Atraumatic, Normocephaly, Mucus Membranes Moist Neck: No JVD, Normal carotid pulses Cardiac: Other (Irregular) Lungs: Normal Breath Sounds, No Wheeze, Rales, Rhonchi Neuro: Alert and responsive, No focal deficits noted Abdomen: Soft, Non-Tender Skin: No rashes noted on visualized skin Musculoskeletal: No Chest Wall Tenderness Extremities: No Clubbing, No Cyanosis, No Edema, Normal Pulses Results 01/19/17 05:02 01/19/17 05:02 Lab Results 01/19/17 11:15 APTT 67.8 H - Imaging and Cardiology Echo: report reviewed - EKG Interpretation EKG results cardiology: personally reviewed - VTE Documentation of Mechanical Device: Graduated compression elastic hosiery Consult Discharge Plan - Plan Referrals: Ivelisse Mitchell MD [Partnered Physician] - (CARDIOLOGY WILL CALL PATIENT AT HOME WITH A FOLLOW UP APPOINTMENT) Mendel Hendricks MD [Primary Care Provider] - 01/24/17 10:00 am ()
[2017-01-20 11:42] LABS: Activated Partial Thrombo Time 58.7 Seconds (26.0-36.0)
[2017-01-20 14:02] LABS: INR 1.8; Prothrombin Time 19.1 Seconds (9.4-12.1)
[2017-01-20] MEDS ORDERED: Warfarin perPT PO PRN (18:00)
[2017-01-20] MEDS ORDERED: *HR* Warfarin 2.5 MG TABLET PO SCH (18:00)
[2017-01-20 20:38] LABS: Albumin 2.9 g/dL (3.5-5.0); Albumin/Globulin Ratio 0.8 (1.1-2.2); Bilirubin,Total 0.7 mg/dL (0.2-1.2); Calcium 8.7 mg/dL (8.6-10.8); Globulin 3.8 g/dL (2.4-3.5); Magnesium 1.6 mg/dL (1.6-2.6); Total Protein 6.7 g/dL (6.0-8.3)
[2017-01-20] MEDS ORDERED: Magnesium Sulfate 2 GM in D5% in Water 100 ML IVPB ONE (20:54)
[2017-01-20] MEDS ORDERED: Furosemide 40 MG/4 ML VIAL IVP SCH (21:00)
[2017-01-21 04:02] LABS: Prothrombin Time 21.4 Seconds (9.4-12.1)
[2017-01-21 04:23] LABS: BUN/Creatinine Ratio 21 (6-26); Blood Urea Nitrogen 25 mg/dL (8-26); Calcium 8.6 mg/dL (8.6-10.8); Carbon Dioxide 29 mEq/L (19-29); Chloride 106 mEq/L (98-109); Glucose 140 mg/dL (70-99); Magnesium 2.3 mg/dL (1.6-2.6); Osmolality,Calculated 303 (280-300); Potassium 4.1 mEq/L (3.5-4.5); Sodium 143 mEq/L (136-145); eGFR For African Americans > 60 (> 60); eGFR For Non-African Americans 58 (> 60)
[2017-01-21] MEDS: Isosorbide MONOnitrate (24 HR) 30 MG TAB.ER.24H PO SCH (08:04)
[2017-01-21] MEDS: Magnesium Oxide 400 MG TABLET PO SCH (08:05)
[2017-01-21] MEDS: ALPRAZolam 0.5 MG TABLET PO PRN (08:05)
[2017-01-21] MEDS: predniSONE 20 MG TABLET PO SCH (08:05)
[2017-01-21] MEDS: Furosemide 40 MG/4 ML VIAL IVP SCH (08:05)
[2017-01-21] MEDS: Metoprolol 100 MG TABLET PO SCH (08:08)
--- NOTE | 2017-01-21 08:09 | Electrocardiograph Report ---
[place] [address] Test Date: 2017-01-18 Pat Name: Rajinder More Department: 110 Room: 2N04 Gender: M Director Television News: SUSAN : 1940 Requested By: Lazara Valenzuela Order Number: [id number] Reading MD: Pro Ruiz MD Measurements Intervals [place] Rate: 75 P: SC: 0 QRS: 49 QRSD: 116 T: -7 QT: 411 QTc: 439 Interpretive Statements ATRIAL FIBRILLATION WITH ABERRANT CONDUCTION OR VENTRICULAR PREMATURE COMPLEXES POSSIBLE INFERIOR MYOCARDIAL INFARCTION, PROBABLY OLD Electronically Signed On 01-21-2017 8:07:29 EDT by Pro Ruiz MD
[2017-01-21] MEDS: Heparin 25,000 UNIT/500 ML D5W 25,000 UNIT/500 ML MLS IVC SCH (08:40)
[2017-01-21] MEDS ORDERED: Heparin 25,000 UNIT/500 ML D5W 25,000 UNIT/500 ML MLS IVC SCH (08:46)
[2017-01-21] MEDS ORDERED: *HR* Heparin 5,000 UNIT/ML VIAL IVP PRN ×2 (08:46)
[2017-01-21] MEDS ORDERED: Amiodarone Premix 150 MG/100 ML BAG IVPB ONE (08:52)
[2017-01-21] MEDS ORDERED: Amiodarone Premix 360 MG/200 ML BAG IVC ONE (08:52)
[2017-01-21] MEDS ORDERED: predniSONE 20 MG TABLET PO SCH (09:13)
--- NOTE | 2017-01-21 09:30 | Cardiology Progress Note ---
Date of Encounter: 01/21/17 Time of Encounter: 09:19 Assessment and Plan (1) Chest pain Current Visit: No Status: Acute Called into patients room. Patient in atrial fibrillation with RVR HR 180-190 with intermittent long runs of ventricular tachycardia. He c/o 8/10 mid-sternal chest pain radiating to his left arm. B/p 158/98. Respirations easy with loud rhonci scattered throughout bilateral anterior lobes. Skin was warm to touch. Instructed nursing staff to prepare amiodarone bolus. Defibrillation pads placed on patient. Oxygen 2L NC placed on patient. EKG obtained and showed ventricular tachycardia. Patient converted to atrial fibrillation spontaneously. Patient coughed and HR decreased to 160's. Dr. Ruiz notified and he arrived at bedside. Amiodarone 300 mg bolus started and cardizem GTT ordered. Patient reported chest pain improved. He was given one SL NTG. Reported some releif. Due to recurrent chest pain and VT despite medical therapy LHC was recommended. Patient was recommended to go to [facility] due to known CAD not amendable to PCI. Dr. Ruiz discussed transfer with patient. He is agreeable. Daughter at bedside. Typical chest pain symptoms prior to admission. Initial EKG shows atrial fibrillation and 10 beats NSVT. No acute ST changed identified. Mild troponin elevation at 0.12, 0.15, 0.14 in the setting of NSVT and COPD exacerbation. TTE shows EF 45%, no change from previous TTE. LHC 06/01/15: severe 1v CAD, mild-moderate LV dysfunction, EF 40%, successful PTCA/GISELLE in the pRCA with residual 40-50% stenosis. Otherwise, 30% LMCA, 30% mLAD, 20% 1OM, and 60-70% dRCA Initially imdur increased to 120 mg BID and metoprolol increased to 150 mg BID and he did well. Now with recurrent symptoms and VT. Recommend transfer to [facility] for possible LHC. Hospitalist notified. Qualifiers: Chest pain type: precordial pain Qualified Code(s): R07.2 - Precordial pain (2) NSVT (nonsustained ventricular tachycardia) Current Visit: Yes Status: Acute Known history of VT seen 07/2016 during in-patient stay and on Holter. Recommended to go to [facility] at that time for further management and he declined. Metoprolol increased to 150 mg BID. Recurrent intermittent NSVT and atrial fibrillation with RVR. Started back on amiodarone. Cardizem gtt started. K-4.1. Magnesium 2.1. Patient being transferred to [facility] for possible LHC. (3) CAD (coronary artery disease) Current Visit: Yes Status: Chronic H/o CAD s/p multiple PCI. Most recently stent placed 05/2015. Previous cardiac testing; Non-exercise nuclear stress test 12/16/15 ([facility]): negative for reversible ischemia , large perfusion defect in the inferolateral-inferior wall from base to apex; gated EF=42% TTE 05/28/15: EF 45-50%, hypokinesis of the basal-mid inferior lateral wall LHC 06/01/15: severe 1v CAD, mild-moderate LV dysfunction, EF 40%, successful PTCA/GISELLE in the pRCA with residual 40-50% stenosis. Otherwise, 30% LMCA, 30% mLAD, 20% 1OM, and 60-70% dRCA Continue asa, statin, imdur, and bb. Qualifiers: Coronary Disease-Associated Artery/Lesion type: [place] artery [place] vs. transplanted heart: [place] heart Associated angina: with stable angina Qualified Code(s): I25.118 - Atherosclerotic heart disease of [place] coronary artery with other forms of angina pectoris (4) A-fib Current Visit: Yes Status: Chronic Atrial fibrillation with RVR HR 180-190 this morning. On amiodarone and cardizem GTT. On coumadin therapy. INR 2.0. On heparin gtt bridge over last 48 hours. Heparin stopped this morning. Qualifiers: Atrial fibrillation type: chronic Qualified Code(s): I48.2 - Chronic atrial fibrillation (5) Ischemic cardiomyopathy Current Visit: Yes Status: Chronic TTE 07/2016 showed EF 45%.Mildly dilated left ventricle. Mild segmental left ventricular systolic dysfunction. Indeterminate diastolic function. Normal right ventricular structure and function. Mild mitral regurgitation. Mild pulmonary hypertension. CXR on admit showed no acute process. Diuresed during his stay. Mild fluid overload noted today. 1+ ankle edema. BNP 1155. WIll give IV lasix today. K 4.1. Kidney function improved. Discussion w patient/family: The assessment and plan as outlined above was discussed with the patient and/or family members who expressed understanding and agreement. All questions were answered. Thank you for involving us in the care of your patient. Please call with any questions. Subjective Principal diagnosis: NSVT, COPD Objective Vital Signs, Last 4 Hours Temp Pulse Resp BP Pulse Ox 01/21/17 08:15 98.2 F 86 18 157/112 98 01/21/17 07:22 98.2 F 86 18 157/112 98 Results 01/19/17 05:02 01/21/17 03:17 Lab Results 01/20/17 01/20/17 01/21/17 10:41 19:58 03:17 INR 1.8 2.0 APTT 58.7 H Sodium 142 Potassium 4.0 Chloride 104 Carbon Dioxide 27 BUN 24 Creatinine 1.50 H Glucose 212 H Calcium 8.7 Magnesium 1.6 Total Bilirubin 0.7 AST 17 ALT 11 Alkaline Phosphatase 76 01/21/17 03:17 INR APTT Sodium 143 Potassium 4.1 Chloride 106 Carbon Dioxide 29 BUN 25 Creatinine 1.21 Glucose 140 H Calcium 8.6 Magnesium 2.3 Total Bilirubin AST ALT Alkaline Phosphatase - VTE Documentation of Mechanical Device: Graduated compression elastic hosiery Consult Discharge Plan - Plan Referrals: Ivelisse Mitchell MD [Partnered Physician] - (CARDIOLOGY WILL CALL PATIENT AT HOME WITH A FOLLOW UP APPOINTMENT) Mendel Hendricks MD [Primary Care Provider] - 01/24/17 10:00 am ()
[2017-01-21] MEDS: Ipratropium/Albuterol Neb 3 ML IH SCH ×2 (10:32→16:17)
[2017-01-21] MEDS: Budesonide/Formoterol 160/4.5 MDI IH SCH (10:32)
[2017-01-21 10:58] VITALS: BP 122/93
[2017-01-21] MEDS ORDERED: Amiodarone Premix 360 MG/200 ML BAG IVC SCH (14:30)
--- NOTE | 2017-01-21 14:44 | Discharge Summary ---
Date of Encounter: 01/23/17 Time of Encounter: 09:00 - Discharge Diagnosis (1) Acute systolic (congestive) heart failure Priority: Primary Status: Acute (2) NSVT (nonsustained ventricular tachycardia) Priority: Primary Status: Acute (3) COPD exacerbation Priority: Primary Status: Acute (4) A-fib Priority: Secondary Status: Chronic Qualifiers: Atrial fibrillation type: chronic Qualified Code(s): I48.2 - Chronic atrial fibrillation (5) Hyperlipidemia Priority: Secondary Status: Chronic Qualifiers: Hyperlipidemia type: mixed hyperlipidemia Qualified Code(s): E78.2 - Mixed hyperlipidemia (6) Hypertension Priority: Secondary Status: Chronic Qualifiers: Hypertension type: essential hypertension Qualified Code(s): I10 - Essential (primary) hypertension (7) CAD (coronary artery disease) Priority: Secondary Status: Chronic Qualifiers: Coronary Disease-Associated Artery/Lesion type: [place] artery [place] vs. transplanted heart: [place] heart Associated angina: with stable angina Qualified Code(s): I25.118 - Atherosclerotic heart disease of [place] coronary artery with other forms of angina pectoris (8) Ischemic cardiomyopathy Priority: Secondary Status: Chronic (9) Sleep apnea Priority: Secondary Status: Chronic Qualifiers: Sleep apnea type: unspecified type Qualified Code(s): G47.30 - Sleep apnea , unspecified - Discharge Medications Home Medications: ALPRAZolam [Xanax 0.5 MG Tablet] 0.5 mg PO TID PRN 05/28/15 [History] Calcium Carbonate/Vitamin D3 [Calcium 600 + Vit D Tablet] 0.5 tab PO BID [History] Clopidogrel [Plavix] 75 mg PO QAM 05/28/15 [History] Nitroglycerin [Nitrostat] 0.4 mg SL AD PRN 05/28/15 [History] Promethazine [Phenergan] 25 mg PO Q6HR PRN #16 tablet 08/10/15 [Rx] Atorvastatin Calcium [Lipitor] 80 mg PO HS 08/12/16 [History] Losartan [Cozaar] 25 mg PO DAILY 08/12/16 [History] Omeprazole [PriLOSEC] 40 mg PO DAILY 08/12/16 [History] Metoprolol [Lopressor] 100 mg PO BID #60 tablet 08/13/16 [Rx] Isosorbide MONOnitrate [Isosorbide Mononitrate ER] 120 mg PO DAILY 10/03/17 [ History] Budesonide/Formoterol 160/4.5 [Symbicort 160/4.5] 2 puff IH BIDR inhaler [Rx] Furosemide [Lasix] 40 mg IVP BIDDIURETIC vial 01/21/17 [Rx] GuaiFENesin ER [Mucinex] 600 mg PO 0900,1900 tbbp.12hr 01/21/17 [Rx] Magnesium Oxide [Mag-Ox] 400 mg PO DAILY tablet 01/21/17 [Rx] Potassium Chloride 10 meq PO BID tab.er.prt 01/21/17 [Rx] predniSONE [PredniSONE] 40 mg PO DAILY tablet 01/21/17 [Rx] Allergies/Adverse Reactions: 3 Allergy/AdvReac Type Severity Reaction Status Date / Time No Known Allergies Allergy Verified 01/18/17 10:28 Procedures/tests Complete & Pending: Procedures Performed prior 72 hours Category Date Time Status EV echocardiogram Routine Y 01/19/17 08:11 Completed Date of admission: 01/18/17 13:58 Primary care physician: Mendel Hendricks MD Discharging clinician: Lazara Valenzuela Anticipated date of discharge: 01/21/17 - Patient Status Disposition: Transfer Critical Access Hosp Condition: Serious Functional capacity at discharge: uses cane/walker Overall status at discharge: patient is not back to baseline - Discharge Instructions Instructions: Atrial Fibrillation (DC) Follow Up With: Ivelisse Mitchell MD [Partnered Physician] - (CARDIOLOGY WILL CALL PATIENT AT HOME WITH A FOLLOW UP APPOINTMENT) Mendel Hendricks MD [Primary Care Provider] - 01/27/17 1:00 pm () Forms: ED Satisfaction Letter - Diet and Activity Diet: low fat, low cholesterol, low salt diet Hospital course: Mr. More is a 76 year old male with the above medical problems who was initially admitted with exertional dyspnea, leg swelling and palpitations. Patient was noted to be having nonsustained ventricular tachycardia in the emergency room and after cardiology consult, was started briefly on IV amiodarone drip. This was later discontinued and patient's home dose of beta glen was titrated with appropriate heart rate control. Patient was also noted to be in acute exacerbation of CHF and was started on diuresis with IV Lasix along with fluid restriction and urine output monitoring. Echocardiogram showed moderate reduction in ejection fraction around 45%, mild concentric left ventricular hypertrophy, segmental left ventricular systolic dysfunction, indeterminate diastolic function, moderate pulmonary hypertension. Cardiology was consulted and patient's Imdur was uptitrated. Patient does have history of chronic atrial fibrillation and was continued on anticoagulation. He underwent left heart catheterization in May 2015 with suboptimal balloon dilatation of RCA stenosis, and patient was actually recommended CABG which he refused at the time. Patient was also noted to have mild acute bronchitis and received oral steroids and bronchodilators and supplemental O2. Patient was noted to have developed acute chest pain with ventricular tachycardia this morning, which later converted to atrial fibrillation with rapid ventricular response. Patient was evaluated by cardiology and started on IV amiodarone, Cardizem and heparin drips. He was recommended to be transferred to tertiary care center for repeat left heart catheterization and possible CABG versus high risk PCI. Case was discussed with transfer center at [facility] [place] and patient is medically stable and agreeable for this transfer. - Time Spent with Patient Total time spent providing and/or coordinating discharge services: Greater than 30 minutes (50 min) - Constitutional Vitals: Temp Pulse Resp BP Pulse Ox 98.2 F 78 19 122/93 94 01/21/17 11:45 01/21/17 11:45 01/21/17 11:45 01/21/17 11:45 01/21/17 11:45 General appearance: Present: A&O X 3, obese, answers questions appropriately - Respiratory Respiratory exam: Present: CTAB, rales (faint bibasal rales). Absent: accessory muscle use, rhonchi, wheezes - Cardiovascular Cardiovascular exam: Present: irregular rhythm, +S1, +S2, tachycardia. Absent: diastolic murmur, gallop, rubs, systolic murmur - VTE Documentation of Mechanical Device: Graduated compression elastic hosiery
== END 2017-01-21 17:23 | disposition critical access hospital (66) | DRG 308 ==
LOC: 2NNU 10:24 → EMEROO 10:24 → 2NNU 12:52
PROVIDERS: ADMIT Registered Nurse; ATTEND Internal Medicine

== ENCOUNTER 2020-11-13 16:50 | Inpatient (IN) ==
[2020-11-13] MEDS ORDERED: cefTRIAXone 2,000 MG in Water for inj. (sterile) 20 ML IVP ONE (17:11)
[2020-11-13 17:39] LABS: Basophils % 0.2 %; Hematocrit 28.3 % (37.5-50.1); Hemoglobin 8.6 g/dL (12.9-16.9); Immature Granulocytes % 0.6 % (0-4); Lymphocytes # 0.7 K/mcL (0.6-4.6); Lymphocytes % 10.7 %; Mean Corpuscular HGB Conc 30.4 g/dL (31.6-35.5); Mean Corpuscular Hemoglobin 24.2 pg (28.0-33.3); Mean Corpuscular Volume 79.7 fL (83.0-100.0); Mean Platelet Volume 10.8 fL (9.4-12.4); Monocytes % 16.3 %; Neutrophils # 4.5 K/mcL (1.6-8.9); Platelet Count 148 K/mcL (140-400); Red Blood Count 3.55 M/mcL (4.19-5.50); Red Cell Distribution Width 19.9 % (11.5-14.5); Segmented Neutrophils % 72.2 %; White Blood Count 6.3 K/mcL (4.3-11.1)
[2020-11-13 17:49] LABS: Prothrombin Time 22.2 Seconds (9.4-12.1)
[2020-11-13 17:52] LABS: Activated Partial Thrombo Time 31.1 Seconds (26.0-36.0)
[2020-11-13 18:01] LABS: Albumin 3.4 g/dL (3.5-5.7); Albumin/Globulin Ratio 1.1 (1.1-2.2); Bilirubin,Direct 0.4 mg/dL (0.0-0.2); Bilirubin,Indirect 0.6 mg/dL (0.0-1.0); Calcium 8.4 mg/dL (8.6-10.3); Globulin 3.1 g/dL (2.4-3.5); Potassium 3.8 mEq/L (3.5-5.1); Total Protein 6.5 g/dL (6.4-8.9)
[2020-11-13 18:21] LABS: Troponin I 0.31 ng/mL (< 0.04)
[2020-11-13] MEDS ORDERED: Furosemide 40 MG/4 ML VIAL IVP ONE (19:08)
[2020-11-13] MEDS ORDERED: Perflutren Lipid Microsphere 1.3 ML in 0.9 % Sodium Chloride 8.7 ML IVP PRN (19:49)
[2020-11-13] MEDS ORDERED: Acetaminophen 325 MG TABLET PO PRN (19:55)
[2020-11-13] MEDS ORDERED: Naloxone 0.4 MG/ML INJ IVP PRN (19:55)
[2020-11-13] MEDS ORDERED: Ondansetron 4 MG/2 ML VIAL IVP PRN (19:55)
[2020-11-13 20:14] LABS: Bacteria,Urine Few per hpf (None-Few); Bilirubin,Urine Negative (Negative); Blood,Urine Negative (Negative); Clarity,Urine Clear (Clear); Color,Urine Yellow (Yellow); Glucose,Urine (UA) Normal (Normal); Ketones,Urine Negative (Negative); Leukocyte Esterase,Urine Negative (Negative); Mucus,Urine Few per lpf (None-Few); Nitrite,Urine Negative (Negative); Protein,Urine 30 mg/dL (Neg-Trace); RBC,Urine 0-3 per hpf (0-3); Specific Gravity,Urine 1.018 (1.010-1.025); Squamous Epithelial Cell,Urine Few per hpf (None-Few); Urobilinogen,Urine Normal (Normal); WBC,Urine 0-3 per hpf (0-3)
[2020-11-13 21:00] LABS: Adenovirus Not Detected (Not Detect); Bordetella Pertussis Not Detected (Not Detect); Chlamydophila pneumoniae Not Detected (Not Detect); Coronavirus 229E Not Detected (Not Detect); Coronavirus HKU1 Not Detected (Not Detect); Coronavirus NL63 Not Detected (Not Detect); Coronavirus OC43 Not Detected (Not Detect); Human Metapneumovirus Not Detected (Not Detect); Human Rhinovirus/Enterovirus Not Detected (Not Detect); Influenza A Subtype 2009 H1 Not Detected (Not Detect); Influenza B Not Detected (Not Detect); Mycoplasma pneumoniae Not Detected (Not Detect); Parainfluenza Virus 1 Not Detected (Not Detect); Parainfluenza Virus 2 Not Detected (Not Detect); Parainfluenza Virus 3 Not Detected (Not Detect); Parainfluenza Virus 4 Not Detected (Not Detect); Respiratory Syncytial Virus Not Detected (Not Detect); SARS-CoV-2 Not Detected (Not Detect)
[2020-11-14] MEDS ORDERED: Azithromycin 500 MG in 0.9 % Sodium Chloride 250 ML IVPB SCH (03:00)
[2020-11-14 05:38] LABS: Hemoglobin 8.5 g/dL (12.9-16.9)
[2020-11-14 05:40] LABS: Hematocrit 29.3 % (37.5-50.1); Immature Platelets 10.1 % (1.1-6.1); Mean Corpuscular Hemoglobin 23.5 pg (28.0-33.3); Mean Corpuscular Volume 81.2 fL (83.0-100.0); Mean Platelet Volume 11.6 fL (9.4-12.4); Red Blood Count 3.61 M/mcL (4.19-5.50); Red Cell Distribution Width 19.7 % (11.5-14.5); White Blood Count 7.5 K/mcL (4.3-11.1)
[2020-11-14 05:46] LABS: Prothrombin Time 22.7 Seconds (9.4-12.1)
[2020-11-14 05:48] LABS: Activated Partial Thrombo Time 32.4 Seconds (26.0-36.0)
[2020-11-14 05:57] LABS: Calcium 8.5 mg/dL (8.6-10.3); Potassium 3.6 mEq/L (3.5-5.1)
[2020-11-14] MEDS ORDERED: Furosemide 20 MG/2 ML VIAL IVP SCH (09:00)
[2020-11-14] MEDS: cefTRIAXone 1,000 MG in 0.9 % Sodium Chloride Mini Bag 100 ML IVPB SCH (09:04)
[2020-11-14] MEDS ORDERED: Metoprolol XL (24 HR) Succ 25 MG TAB.ER.24H PO SCH (11:15)
[2020-11-14 11:56] LABS: Protein/Creatinine Ratio,Urine 0.43 mg/mg (0.00-0.20)
[2020-11-14] MEDS: Metoprolol XL (24 HR) Succ 25 MG TAB.ER.24H PO SCH (12:26)
[2020-11-14] MEDS ORDERED: Nitroglycerin 0.4 MG TAB.SUBL SL PRN (14:58)
[2020-11-14] MEDS ORDERED: Ranolazine 500 MG TAB.ER.12H PO SCH (15:00)
[2020-11-14 15:06] LABS: Complement C3 125 mg/dL (87-200)
[2020-11-14] MEDS: Ipratropium/Albuterol Neb 3 ML IH SCH ×2 (16:08→21:45)
[2020-11-14] MEDS: Furosemide 20 MG/2 ML VIAL IVP SCH (17:37)
[2020-11-14] MEDS ORDERED: Warfarin 0.5 MG, Warfarin 1 MG PO ONE (18:00)
[2020-11-14] MEDS ORDERED: *HR* Warfarin 3 MG TABLET PO ONE (18:00)
[2020-11-14] MEDS ORDERED: Warfarin perPT PO PRN (18:00)
[2020-11-15] MEDS: Ipratropium/Albuterol Neb 3 ML IH SCH ×4 (04:12→22:59)
[2020-11-15] MEDS: Ranolazine 500 MG TAB.ER.12H PO SCH ×2 (05:13→17:58)
[2020-11-15 07:54] LABS: Hemoglobin 8.5 g/dL (12.9-16.9); Lymphocytes % 19.3 %; White Blood Count 4.9 K/mcL (4.3-11.1)
[2020-11-15 07:56] LABS: Basophils % 0.4 %; Eosinophils # 0.1 K/mcL (0.0-0.6); Eosinophils % 1.2 %; Hematocrit 28.9 % (37.5-50.1); Immature Granulocytes % 0.6 % (0-4); Immature Platelets 10.3 % (1.1-6.1); Mean Corpuscular HGB Conc 29.4 g/dL (31.6-35.5); Mean Corpuscular Hemoglobin 23.7 pg (28.0-33.3); Mean Corpuscular Volume 80.5 fL (83.0-100.0); Mean Platelet Volume 11.5 fL (9.4-12.4); Monocytes # 0.8 K/mcL (0.0-1.3); Monocytes % 15.4 %; Neutrophils # 3.1 K/mcL (1.6-8.9); Platelet Count 133 K/mcL (140-400); Red Blood Count 3.59 M/mcL (4.19-5.50); Red Cell Distribution Width 19.5 % (11.5-14.5); Segmented Neutrophils % 63.1 %
[2020-11-15 07:58] LABS: Prothrombin Time 23.1 Seconds (9.4-12.1)
[2020-11-15 08:44] LABS: BUN/Creatinine Ratio 22 (6-26); Blood Urea Nitrogen 29 mg/dL (8-23); Calcium 8.3 mg/dL (8.6-10.3); Carbon Dioxide 34 mEq/L (23-29); Chloride 99 mEq/L (98-107); Glucose 90 mg/dL (70-105); Osmolality,Calculated 295 (280-300); Potassium 3.3 mEq/L (3.5-5.1); Sodium 140 mEq/L (136-145); eGFR For African Americans > 60 (> 60); eGFR For Non-African Americans 54 (> 60)
[2020-11-15] MEDS: Furosemide 20 MG/2 ML VIAL IVP SCH ×2 (08:45→19:59)
[2020-11-15] MEDS: cefTRIAXone 1,000 MG in 0.9 % Sodium Chloride Mini Bag 100 ML IVPB SCH (08:45)
[2020-11-15] MEDS: *HR* Amiodarone 200 MG TABLET PO SCH (08:47)
[2020-11-15] MEDS: Metoprolol XL (24 HR) Succ 25 MG TAB.ER.24H PO SCH (08:47)
[2020-11-15] MEDS: Azithromycin 250 MG TABLET PO SCH (08:47)
[2020-11-15] MEDS: Aspirin Enteric Coated 81 MG Tablet PO SCH (08:47)
[2020-11-15] MEDS ORDERED: Ferumoxytol 510 MG in 0.9 % Sodium Chloride 100 ML IVPB ONE (11:00)
[2020-11-15] MEDS ORDERED: Furosemide 20 MG/2 ML VIAL IVP ONE (13:05)
[2020-11-16 01:38] LABS: Basophils % 0.2 %; Eosinophils # 0.1 K/mcL (0.0-0.6); Eosinophils % 1.6 %; Hematocrit 28.6 % (37.5-50.1); Hemoglobin 8.7 g/dL (12.9-16.9); Immature Granulocytes % 0.8 % (0-4); Lymphocytes # 0.7 K/mcL (0.6-4.6); Lymphocytes % 13.9 %; Mean Corpuscular HGB Conc 30.4 g/dL (31.6-35.5); Mean Corpuscular Hemoglobin 24.7 pg (28.0-33.3); Mean Corpuscular Volume 81.3 fL (83.0-100.0); Mean Platelet Volume 10.6 fL (9.4-12.4); Monocytes # 0.7 K/mcL (0.0-1.3); Monocytes % 14.3 %; Neutrophils # 3.6 K/mcL (1.6-8.9); Platelet Count 153 K/mcL (140-400); Red Blood Count 3.52 M/mcL (4.19-5.50); Segmented Neutrophils % 69.2 %; White Blood Count 5.1 K/mcL (4.3-11.1)
[2020-11-16 01:51] LABS: INR 2.1; Prothrombin Time 23.4 Seconds (9.4-12.1)
[2020-11-16 01:55] LABS: BUN/Creatinine Ratio 23 (6-26); Blood Urea Nitrogen 30 mg/dL (8-23); Calcium 8.2 mg/dL (8.6-10.3); Carbon Dioxide 34 mEq/L (23-29); Chloride 99 mEq/L (98-107); Glucose 108 mg/dL (70-105); Osmolality,Calculated 297 (280-300); Potassium 3.4 mEq/L (3.5-5.1); Sodium 140 mEq/L (136-145); eGFR For African Americans > 60 (> 60); eGFR For Non-African Americans 53 (> 60)
[2020-11-16] MEDS: Ipratropium/Albuterol Neb 3 ML IH SCH ×4 (03:50→22:45)
[2020-11-16] MEDS: Ranolazine 500 MG TAB.ER.12H PO SCH ×2 (06:06→17:36)
[2020-11-16] MEDS: *HR* Amiodarone 200 MG TABLET PO SCH (08:04)
[2020-11-16] MEDS: Metoprolol XL (24 HR) Succ 25 MG TAB.ER.24H PO SCH (08:04)
[2020-11-16] MEDS: Aspirin Enteric Coated 81 MG Tablet PO SCH (08:04)
[2020-11-16] MEDS: Azithromycin 250 MG TABLET PO SCH (08:04)
[2020-11-16] MEDS: Furosemide 20 MG/2 ML VIAL IVP SCH (08:05)
[2020-11-16] MEDS: cefTRIAXone 1,000 MG in 0.9 % Sodium Chloride Mini Bag 100 ML IVPB SCH (08:06)
[2020-11-16] MEDS: Furosemide 40 MG TABLET PO SCH (17:36)
[2020-11-16] MEDS ORDERED: Warfarin 0.5 MG, Warfarin 1 MG PO ONE (18:00)
[2020-11-17 02:01] LABS: Basophils % 0.4 %; Eosinophils % 2.4 %; Hemoglobin 8.6 g/dL (12.9-16.9); Red Cell Distribution Width 20.2 % (11.5-14.5)
[2020-11-17 02:03] LABS: Eosinophils # 0.1 K/mcL (0.0-0.6); Immature Granulocytes % 0.4 % (0-4); Immature Platelets 8.6 % (1.1-6.1); Lymphocytes % 20.6 %; Mean Corpuscular HGB Conc 28.7 g/dL (31.6-35.5); Mean Corpuscular Hemoglobin 23.6 pg (28.0-33.3); Mean Corpuscular Volume 82.2 fL (83.0-100.0); Mean Platelet Volume 11.4 fL (9.4-12.4); Monocytes # 0.7 K/mcL (0.0-1.3); Monocytes % 14.8 %; Neutrophils # 2.9 K/mcL (1.6-8.9); Platelet Count 179 K/mcL (140-400); Red Blood Count 3.65 M/mcL (4.19-5.50); Segmented Neutrophils % 61.4 %; White Blood Count 4.7 K/mcL (4.3-11.1)
[2020-11-17 02:05] LABS: INR 2.2; Prothrombin Time 24.9 Seconds (9.4-12.1)
[2020-11-17 02:19] LABS: Calcium 8.4 mg/dL (8.6-10.3); Potassium 4.5 mEq/L (3.5-5.1)
[2020-11-17] MEDS: Ipratropium/Albuterol Neb 3 ML IH SCH ×3 (03:47→15:44)
[2020-11-17] MEDS: Ranolazine 500 MG TAB.ER.12H PO SCH (05:40)
[2020-11-17] MEDS: cefTRIAXone 1,000 MG in 0.9 % Sodium Chloride Mini Bag 100 ML IVPB SCH (09:00)
[2020-11-17] MEDS ORDERED: Isosorbide MONOnitrate (24 HR) 60 MG TAB.ER.24H PO SCH (09:00)
[2020-11-17] MEDS: Aspirin Enteric Coated 81 MG Tablet PO SCH (09:00)
[2020-11-17] MEDS: Furosemide 40 MG TABLET PO SCH (09:01)
[2020-11-17] MEDS: Azithromycin 250 MG TABLET PO SCH (09:01)
[2020-11-17] MEDS: Metoprolol XL (24 HR) Succ 25 MG TAB.ER.24H PO SCH (09:02)
[2020-11-17] MEDS: *HR* Amiodarone 200 MG TABLET PO SCH (09:02)
[2020-11-17 15:18] VITALS: BP 114/68; PULSE 100; TEMP 98.6; O2SAT 98
[2020-11-17] MEDS ORDERED: Cefdinir 300 MG CAPSULE PO SCH (21:00)
[2020-11-17] MEDS ORDERED: Metoprolol XL (24 HR) Succ 50 MG TAB.ER.24H PO SCH (21:00)
[2020-11-18] MEDS ORDERED: Furosemide 40 MG TABLET PO SCH (09:00)
[2020-11-18] MEDS ORDERED: Spironolactone 25 MG TABLET PO SCH (09:00)
[2020-11-18 23:45] LABS: Alpha 2 Globulin (PEP) 0.82 g/dL (0.48-1.05); Beta Globulin (PEP) 1.01 g/dL (0.48-1.10)
[2020-11-19 07:02] LABS: IFE Reflexed NOT DONE
== END 2020-11-17 16:22 | disposition home or self-care (01) | DRG 280 ==
LOC: EMEROOARM 16:50 → 3ANU 16:50 → SUATTDRO 19:50 → 3ANU 21:03
PROVIDERS: ADMIT Student in an Organized Health Care Education/Training Program; ATTEND General Practice

== ENCOUNTER 2021-08-22 15:51 | Inpatient (IN) ==
[2021-08-22 16:55] LABS: Basophils % 0.2 %; Immature Granulocytes % 0.2 % (0-4); Mean Corpuscular Volume 80.3 fL (83.0-100.0)
[2021-08-22 16:57] LABS: Eosinophils % 0.7 %; Hematocrit 28.9 % (37.5-50.1); Hemoglobin 9.1 g/dL (12.9-16.9); Immature Platelets 13.6 % (1.1-6.1); Lymphocytes # 0.7 K/mcL (0.6-4.6); Lymphocytes % 16.8 %; Mean Corpuscular HGB Conc 31.5 g/dL (31.6-35.5); Mean Corpuscular Hemoglobin 25.3 pg (28.0-33.3); Monocytes # 0.7 K/mcL (0.0-1.3); Monocytes % 17.6 %; Neutrophils # 2.6 K/mcL (1.6-8.9); Platelet Count 132 K/mcL (140-400); Red Cell Distribution Width 20.4 % (11.5-14.5); Segmented Neutrophils % 64.5 %
[2021-08-22 17:00] LABS: Bacteria,Urine Few per hpf (None-Few); Bilirubin,Urine Negative (Negative); Blood,Urine Moderate (Negative); Clarity,Urine Turbid (Clear); Color,Urine Yellow (Yellow); Glucose,Urine (UA) Normal (Normal); Hyaline Casts,Urine Many per lpf (None Seen); Ketones,Urine Negative (Negative); Leukocyte Esterase,Urine Negative (Negative); Mucus,Urine Few per lpf (None-Few); Nitrite,Urine Negative (Negative); Protein,Urine 100 mg/dL (Neg-Trace); RBC,Urine 0-3 per hpf (0-3); Specific Gravity,Urine 1.019 (1.010-1.025); Squamous Epithelial Cell,Urine Few per hpf (None-Few)
[2021-08-22 17:06] LABS: INR 2.1; Prothrombin Time 23.8 Seconds (9.4-12.1)
[2021-08-22 17:09] LABS: Activated Partial Thrombo Time 40.3 Seconds (26.0-36.0)
[2021-08-22 17:15] LABS: Albumin 2.7 g/dL (3.5-5.7); Albumin/Globulin Ratio 0.8 (1.1-2.2); Bilirubin,Direct 0.7 mg/dL (0.0-0.2); Bilirubin,Indirect 0.8 mg/dL (0.0-1.0); Bilirubin,Total 1.5 mg/dL (0.3-1.0); Globulin 3.2 g/dL (2.4-3.5); Total Protein 5.9 g/dL (6.4-8.9); Troponin I 0.04 ng/mL (< 0.04)
[2021-08-22] MEDS ORDERED: cefTRIAXone 1,000 MG in 0.9 % Sodium Chloride Mini Bag 100 ML IVPB ONE (18:40)
[2021-08-22] MEDS ORDERED: Albumin 25% 25gram/100mL 25 GM/100 ML IV.SOLN IVPB ONE (18:41)
[2021-08-22] MEDS ORDERED: Furosemide 40 MG/4 ML VIAL IVP ONE (20:03)
[2021-08-22 20:09] LABS: Magnesium 1.5 mg/dL (1.6-2.6); Phosphorous 3.4 mg/dL (2.7-4.5)
[2021-08-22] MEDS ORDERED: Naloxone 0.4 MG/ML INJ IVP PRN (21:08)
[2021-08-22] MEDS ORDERED: Ondansetron ODT 4 MG TAB.RAPDIS SL PRN (21:08)
[2021-08-22] MEDS ORDERED: Ipratropium/Albuterol Neb 3 ML IH PRN (21:29)
[2021-08-22] MEDS ORDERED: Magnesium Sulfate 1 GM/102 ML PIGGYBACK IVPB ONE (21:45)
[2021-08-22] MEDS ORDERED: Perflutren Lipid Microsphere 1.3 ML in 0.9 % Sodium Chloride 8.7 ML IVP PRN (23:14)
[2021-08-23] MEDS: Melatonin 3 MG TABLET PO PRN ×2 (00:02→22:58)
[2021-08-23] MEDS: Azithromycin 250 MG TABLET PO SCH ×2 (00:02→09:29)
[2021-08-23] MEDS: Albumin 25% 25gram/100mL 25 GM/100 ML IV.SOLN IVPB SCH ×3 (00:03→13:33)
[2021-08-23 00:59] LABS: Adenovirus Not Detected (Not Detect); Bordetella Pertussis Not Detected (Not Detect); Chlamydophila pneumoniae Not Detected (Not Detect); Coronavirus 229E Not Detected (Not Detect); Coronavirus HKU1 Not Detected (Not Detect); Coronavirus NL63 Not Detected (Not Detect); Coronavirus OC43 Not Detected (Not Detect); Human Metapneumovirus Not Detected (Not Detect); Human Rhinovirus/Enterovirus Not Detected (Not Detect); Influenza A Subtype 2009 H1 Not Detected (Not Detect); Influenza B Not Detected (Not Detect); Mycoplasma pneumoniae Not Detected (Not Detect); Parainfluenza Virus 1 Not Detected (Not Detect); Parainfluenza Virus 2 Not Detected (Not Detect); Parainfluenza Virus 3 Not Detected (Not Detect); Parainfluenza Virus 4 Not Detected (Not Detect); Respiratory Syncytial Virus Not Detected (Not Detect); SARS-CoV-2 Not Detected (Not Detect)
[2021-08-23 02:26] LABS: Thyroid Stimulating Hormone 1.583 mcIU/mL (0.340-5.600)
[2021-08-23 05:48] LABS: Basophils % 0.4 %; Eosinophils % 0.7 %; Hematocrit 26.4 % (37.5-50.1); Hemoglobin 8.4 g/dL (12.9-16.9); Immature Granulocytes % 0.4 % (0-4); Immature Platelets 13.7 % (1.1-6.1); Lymphocytes # 0.6 K/mcL (0.6-4.6); Lymphocytes % 10.9 %; Mean Corpuscular HGB Conc 31.8 g/dL (31.6-35.5); Mean Corpuscular Hemoglobin 25.8 pg (28.0-33.3); Monocytes # 0.8 K/mcL (0.0-1.3); Neutrophils # 3.9 K/mcL (1.6-8.9); Platelet Count 117 K/mcL (140-400); Red Blood Count 3.26 M/mcL (4.19-5.50); Red Cell Distribution Width 20.3 % (11.5-14.5); Segmented Neutrophils % 73.6 %; White Blood Count 5.3 K/mcL (4.3-11.1)
[2021-08-23 06:03] LABS: Albumin 3.2 g/dL (3.5-5.7); Albumin/Globulin Ratio 1.1 (1.1-2.2); Bilirubin,Direct 0.8 mg/dL (0.0-0.2); Bilirubin,Indirect 0.8 mg/dL (0.0-1.0); Bilirubin,Total 1.6 mg/dL (0.3-1.0); Total Protein 6.2 g/dL (6.4-8.9)
[2021-08-23 06:04] LABS: Magnesium 1.6 mg/dL (1.6-2.6); Phosphorous 3.7 mg/dL (2.7-4.5)
[2021-08-23] MEDS ORDERED: Furosemide 40 MG/4 ML VIAL IVP SCH ×2 (09:00)
[2021-08-23] MEDS ORDERED: cefTRIAXone 1,000 MG in 0.9 % Sodium Chloride 10 ML IVP SCH (09:00)
[2021-08-23 09:28] LABS: INR 2.1; Prothrombin Time 23.1 Seconds (9.4-12.1)
[2021-08-23] MEDS: Furosemide 20 MG/2 ML VIAL IVP SCH ×2 (09:30→21:46)
[2021-08-23] MEDS: cefTRIAXone 1,000 MG in 0.9 % Sodium Chloride 10 ML IVP SCH (09:30)
[2021-08-23 09:33] LABS: Calcium 8.5 mg/dL (8.6-10.3); Potassium 3.1 mEq/L (3.5-5.1)
[2021-08-23 09:39] LABS: Troponin I 0.04 ng/mL (< 0.04)
[2021-08-23] MEDS: Ranolazine 500 MG TAB.ER.12H PO SCH ×2 (13:37→21:46)
[2021-08-23] MEDS ORDERED: Warfarin perPT PO PRN (18:00)
[2021-08-23] MEDS ORDERED: *HR* Warfarin 2.5 MG TABLET PO SCH (18:00)
[2021-08-23] MEDS: Metoprolol XL (24 HR) Succ 50 MG TAB.ER.24H PO SCH (21:46)
[2021-08-24 02:49] LABS: Basophils % 0.2 %; Red Cell Distribution Width 20.2 % (11.5-14.5)
[2021-08-24 02:51] LABS: Eosinophils % 0.5 %; Hematocrit 26.1 % (37.5-50.1); Hemoglobin 8.3 g/dL (12.9-16.9); Immature Granulocytes % 0.4 % (0-4); Immature Platelets 16.1 % (1.1-6.1); Lymphocytes # 0.8 K/mcL (0.6-4.6); Mean Corpuscular HGB Conc 31.8 g/dL (31.6-35.5); Mean Corpuscular Hemoglobin 25.7 pg (28.0-33.3); Mean Corpuscular Volume 80.8 fL (83.0-100.0); Monocytes # 1.1 K/mcL (0.0-1.3); Monocytes % 18.8 %; Neutrophils # 3.7 K/mcL (1.6-8.9); Nucleated Red Blood Cells 0.4 /100 WBC (0); Platelet Count 107 K/mcL (140-400); Red Blood Count 3.23 M/mcL (4.19-5.50); Segmented Neutrophils % 66.1 %; White Blood Count 5.6 K/mcL (4.3-11.1)
[2021-08-24 02:54] LABS: Prothrombin Time 22.6 Seconds (9.4-12.1)
[2021-08-24 02:56] LABS: Calcium 8.6 mg/dL (8.6-10.3); Potassium 3.2 mEq/L (3.5-5.1)
[2021-08-24] MEDS ORDERED: Perflutren Lipid Microsphere 1.3 ML in 0.9 % Sodium Chloride 8.7 ML IVP PRN (07:44)
[2021-08-24 08:21] LABS: Hepatitis B Surface Antigen Nonreactive (Nonreactive)
[2021-08-24] MEDS: Furosemide 20 MG/2 ML VIAL IVP SCH ×2 (08:35→22:12)
[2021-08-24] MEDS: Ranolazine 500 MG TAB.ER.12H PO SCH (08:36)
[2021-08-24] MEDS: Spironolactone 25 MG TABLET PO SCH (08:36)
[2021-08-24] MEDS: Metoprolol XL (24 HR) Succ 50 MG TAB.ER.24H PO SCH ×2 (08:36→22:12)
[2021-08-24] MEDS: cefTRIAXone 1,000 MG in 0.9 % Sodium Chloride 10 ML IVP SCH (08:36)
[2021-08-24] MEDS: Azithromycin 250 MG TABLET PO SCH (08:37)
[2021-08-24 08:50] LABS: Hepatitis B Core IgM Nonreactive (Nonreactive)
[2021-08-24 08:51] LABS: Hepatitis A Antibody IgM Nonreactive (Nonreactive); Hepatitis C Virus Antibody Nonreactive (Nonreactive)
[2021-08-24] MEDS ORDERED: *HR* Amiodarone 200 MG TABLET PO SCH (09:00)
[2021-08-24] MEDS ORDERED: Aspirin Enteric Coated 81 MG Tablet PO SCH (09:00)
[2021-08-24 09:35] LABS: Albumin 3.3 g/dL (3.5-5.7); Albumin/Globulin Ratio 1.3 (1.1-2.2); Bilirubin,Direct 0.9 mg/dL (0.0-0.2); Bilirubin,Indirect 0.8 mg/dL (0.0-1.0); Bilirubin,Total 1.7 mg/dL (0.3-1.0); Globulin 2.5 g/dL (2.4-3.5); Total Protein 5.8 g/dL (6.4-8.9)
[2021-08-24 15:24] LABS: RBC,Pleural Fluid 8000 RBC/mcL
[2021-08-24 15:50] LABS: Basophils,Pleural Fluid 0 %; Eosinophils,Pleural Fluid 0 %
[2021-08-24 15:51] LABS: Appearance of Pleural Fl Clear (Clear)
[2021-08-24 15:54] LABS: Glucose,Pleural Fluid 96 mg/dL (No Ref Range); LDH,Pleural Fluid 120 Units/L (No Ref Range); Total Protein,Pleural Fluid < 2.0 g/dL
[2021-08-24] MEDS: Albumin 25% 25gram/100mL 25 GM/100 ML IV.SOLN IVPB SCH (16:39)
[2021-08-24] MEDS ORDERED: *HR* Warfarin 1 MG TABLET PO ONE (18:00)
[2021-08-24] MEDS: Melatonin 3 MG TABLET PO PRN (22:12)
[2021-08-25] MEDS: Albumin 25% 25gram/100mL 25 GM/100 ML IV.SOLN IVPB SCH ×4 (00:12→23:10)
[2021-08-25 02:05] LABS: Basophils % 0.2 %; Hemoglobin 8.2 g/dL (12.9-16.9); Immature Granulocytes % 0.4 % (0-4)
[2021-08-25 02:07] LABS: Eosinophils # 0.1 K/mcL (0.0-0.6); Eosinophils % 1.2 %; Hematocrit 26.2 % (37.5-50.1); Immature Platelets 17.9 % (1.1-6.1); Lymphocytes # 0.6 K/mcL (0.6-4.6); Lymphocytes % 11.4 %; Mean Corpuscular HGB Conc 31.3 g/dL (31.6-35.5); Mean Corpuscular Hemoglobin 25.5 pg (28.0-33.3); Mean Corpuscular Volume 81.6 fL (83.0-100.0); Monocytes # 0.9 K/mcL (0.0-1.3); Monocytes % 16.4 %; Platelet Count 111 K/mcL (140-400); Red Blood Count 3.21 M/mcL (4.19-5.50); Red Cell Distribution Width 20.2 % (11.5-14.5); Segmented Neutrophils % 70.4 %; White Blood Count 5.2 K/mcL (4.3-11.1)
[2021-08-25 02:12] LABS: INR 2.1
[2021-08-25 02:16] LABS: Neutrophils # 3.7 K/mcL (1.6-8.9)
[2021-08-25 02:23] LABS: Calcium 8.4 mg/dL (8.6-10.3); Potassium 3.4 mEq/L (3.5-5.1)
[2021-08-25] MEDS: Isosorbide MONOnitrate (24 HR) 60 MG TAB.ER.24H PO SCH (07:57)
[2021-08-25] MEDS: Spironolactone 25 MG TABLET PO SCH (07:57)
[2021-08-25] MEDS: Furosemide 20 MG/2 ML VIAL IVP SCH ×2 (07:58→20:56)
[2021-08-25] MEDS: Azithromycin 250 MG TABLET PO SCH (07:58)
[2021-08-25] MEDS: cefTRIAXone 1,000 MG in 0.9 % Sodium Chloride 10 ML IVP SCH (07:58)
[2021-08-25] MEDS: Metoprolol XL (24 HR) Succ 50 MG TAB.ER.24H PO SCH ×2 (07:58→20:56)
[2021-08-26 03:44] LABS: Basophils % 0.2 %
[2021-08-26 03:45] LABS: Eosinophils # 0.1 K/mcL (0.0-0.6); Eosinophils % 1.1 %; Hematocrit 24.3 % (37.5-50.1); Hemoglobin 7.7 g/dL (12.9-16.9); Immature Granulocytes % 0.4 % (0-4); Immature Platelets 16.4 % (1.1-6.1); Lymphocytes # 0.8 K/mcL (0.6-4.6); Lymphocytes % 16.3 %; Mean Corpuscular HGB Conc 31.7 g/dL (31.6-35.5); Mean Corpuscular Hemoglobin 25.6 pg (28.0-33.3); Mean Corpuscular Volume 80.7 fL (83.0-100.0); Monocytes % 21.8 %; Neutrophils # 2.8 K/mcL (1.6-8.9); Red Blood Count 3.01 M/mcL (4.19-5.50); Segmented Neutrophils % 60.2 %; White Blood Count 4.6 K/mcL (4.3-11.1)
[2021-08-26 03:57] LABS: Prothrombin Time 22.2 Seconds (9.4-12.1)
[2021-08-26 04:09] LABS: Anisocytosis 2+ (Not Present); Platelet Count 97 K/mcL (140-400); Platelet Estimate Decreased (Normal)
[2021-08-26 04:11] LABS: Bilirubin,Direct 0.6 mg/dL (0.0-0.2); Bilirubin,Indirect 0.6 mg/dL (0.0-1.0); Bilirubin,Total 1.2 mg/dL (0.3-1.0)
[2021-08-26 05:48] LABS: Calcium 8.9 mg/dL (8.6-10.3); Magnesium 1.8 mg/dL (1.6-2.6); Potassium 4.5 mEq/L (3.5-5.1)
[2021-08-26] MEDS ORDERED: hydrOXYzine pamoate 25 MG CAPSULE PO PRN (09:31)
[2021-08-26] MEDS: Azithromycin 250 MG TABLET PO SCH (10:03)
[2021-08-26] MEDS: Metoprolol XL (24 HR) Succ 50 MG TAB.ER.24H PO SCH ×2 (10:03→21:51)
[2021-08-26] MEDS: Spironolactone 25 MG TABLET PO SCH (10:03)
[2021-08-26] MEDS: Isosorbide MONOnitrate (24 HR) 60 MG TAB.ER.24H PO SCH (10:04)
[2021-08-26] MEDS: cefTRIAXone 1,000 MG in 0.9 % Sodium Chloride 10 ML IVP SCH (10:04)
[2021-08-26] MEDS: Albumin 25% 25gram/100mL 25 GM/100 ML IV.SOLN IVPB SCH ×2 (10:04→16:26)
[2021-08-26] MEDS ORDERED: *HR* Warfarin 1 MG TABLET PO ONE (18:00)
[2021-08-26] MEDS: Melatonin 3 MG TABLET PO SCH (21:52)
[2021-08-27] MEDS: Albumin 25% 25gram/100mL 25 GM/100 ML IV.SOLN IVPB SCH ×4 (00:31→21:58)
[2021-08-27 02:09] LABS: Fluid Source for Albumin PLEURAL FLUID
[2021-08-27 03:03] LABS: INR 1.8; Prothrombin Time 20.4 Seconds (9.4-12.1)
[2021-08-27] MEDS: Metoprolol XL (24 HR) Succ 50 MG TAB.ER.24H PO SCH ×2 (09:00→21:50)
[2021-08-27] MEDS: Azithromycin 250 MG TABLET PO SCH (09:00)
[2021-08-27] MEDS: Spironolactone 25 MG TABLET PO SCH (09:00)
[2021-08-27] MEDS: Isosorbide MONOnitrate (24 HR) 60 MG TAB.ER.24H PO SCH (09:00)
[2021-08-27] MEDS ORDERED: Cefdinir 300 MG CAPSULE PO SCH (09:00)
[2021-08-27 10:24] LABS: Nucleated Red Blood Cells 0.7 /100 WBC (0)
[2021-08-27 10:26] LABS: Hematocrit 24.1 % (37.5-50.1); Hemoglobin 7.6 g/dL (12.9-16.9); Immature Platelets 16.1 % (1.1-6.1); Mean Corpuscular HGB Conc 31.5 g/dL (31.6-35.5); Mean Corpuscular Hemoglobin 25.5 pg (28.0-33.3); Mean Corpuscular Volume 80.9 fL (83.0-100.0); Platelet Count 126 K/mcL (140-400); Red Blood Count 2.98 M/mcL (4.19-5.50); Red Cell Distribution Width 20.2 % (11.5-14.5); White Blood Count 5.4 K/mcL (4.3-11.1)
[2021-08-27 10:44] LABS: Calcium 9.1 mg/dL (8.6-10.3)
[2021-08-27 11:33] LABS: Eosinophils # 0.2 K/mcL (0.0-0.6); Lymphocytes # 0.9 K/mcL (0.6-4.6); Monocytes # 0.7 K/mcL (0.0-1.3); Neutrophils # 3.7 K/mcL (1.6-8.9)
[2021-08-27 11:34] LABS: Platelet Estimate Slight Decrease (Normal)
[2021-08-27] MEDS ORDERED: *HR* Warfarin 1 MG TABLET PO ONE (18:00)
[2021-08-27] MEDS: Melatonin 3 MG TABLET PO SCH (21:50)
[2021-08-27 22:54] VITALS: PULSE 71; TEMP 98.1
[2021-08-28 01:09] LABS: ABG Base Excess -6 mEq/L (-2 to 3); ABG HCO3 25 mEq/L (21-27); ABG Oxygen Saturation 98 % (95-98); ABG PCO2 81 mmHg (35-45); ABG PH 7.09 pH Units (7.32-7.45); ABG PO2 155 mmHg (85-104); ABG TCO2 27 mEq/L (20-26)
[2021-08-28 01:10] LABS: INR 2.5; Prothrombin Time 27.2 Seconds (9.4-12.1)
[2021-08-28] MEDS ORDERED: *HR* FentaNYL (PF) 100 MCG/2 ML VIAL ONE (01:12)
[2021-08-28 01:24] LABS: VBG Ionized Calcium 1.11 mmol/L (1.15-1.35)
[2021-08-28] MEDS ORDERED: Morphine Sulfate 2 MG/ML SYRINGE IVP PRN (01:51)
[2021-08-28] MEDS ORDERED: *HR* LORazepam 2 MG/ML VIAL IVP PRN (01:52)
[2021-08-28] MEDS ORDERED: Atropine Sulfate 1% 40 DROP/2 ML BOTTLE BOTH EYES PRN (01:52)
[2021-08-28] MEDS ORDERED: *HR* FentaNYL (PF) 100 MCG/2 ML VIAL IVP ONE (01:53)
[2021-08-28 02:05] LABS: Albumin 4.6 g/dL (3.5-5.7); Albumin/Globulin Ratio 1.8 (1.1-2.2); Bilirubin,Direct 1.4 mg/dL (0.0-0.2); Bilirubin,Indirect 1.4 mg/dL (0.0-1.0); Bilirubin,Total 2.8 mg/dL (0.3-1.0); Calcium 9.4 mg/dL (8.6-10.3); Globulin 2.6 g/dL (2.4-3.5); Potassium 5.6 mEq/L (3.5-5.1); Total Protein 7.2 g/dL (6.4-8.9)
[2021-08-28 02:26] VITALS: O2SAT 90
[2021-08-28] MEDS ORDERED: *HR* Midazolam HCl 5 MG/5 ML VIAL IVP ONE (03:06)
[2021-08-28] MEDS ORDERED: *HR* Atropine Sulfate 1 MG/10 ML SYRINGE IV ONE (03:06)
[2021-08-28] MEDS ORDERED: *HR* Dextrose 50 % in Water (Syg) 50 ML SYRINGE IVP ONE (03:06)
[2021-08-28] MEDS ORDERED: EPINEPHrine 1 MG/ML VIAL IV ONE (03:06)
[2021-08-28 03:43] VITALS: BP 74/54
== END 2021-08-28 03:07 | disposition expired ==
LOC: EMEROOARM 15:51 → 2NENU 15:51 → SUATTDRO 21:23 → 2NENU 22:20 → SUATTDRO 08-23 12:26
PROVIDERS: ADMIT Internal Medicine; ATTEND Internal Medicine